=== PATIENT | female | born 1975 | race Caucasian/White ===

== ENCOUNTER 2020-11-12 21:59 | Observation (INO) | payer BC, SELFPAY ==
--- NOTE | ~2020-11-12 | XR_ITS ---
XR abdomen/kub 1V 11/14/2020 09:35 INDICATION: Right renal stone TECHNIQUE: KUB COMPARISON: CT dated 11/13/2020 FINDINGS: Bowel gas pattern is normal. There is no evidence of free air, mass, organomegaly, ascites or obstruction. No abnormal calculi are seen. There are pelvic phleboliths. Cannot definitively exc lude distal ureteral stone. The bones appear intact. IMPRESSION: 1: No acute abdominal abnormality identified. Dr. Ry Mary discussed with Dr. Mila Starks MD at 11/14/2020 09:45 CDT. Reviewed, dictated and finalized at location B.
--- NOTE | ~2020-11-12 | XR_ITS ---
EXAMINATION: XR retrograde pyelo w/stent RT DATE: 11/14/2020 12:44 INDICATION: Right internal ureteral stent placement TECHNIQUE: Fluoroscopic images from a right internal ureteral stent placement are submitted for cindy carranza 76 seconds of fluoroscopy time. FINDINGS: There is a right double-J internal ureteral stent projecting in expected position, with proximal [place] loop at the level of the renal pelvis and distal loop in the pelvis within the bladder lumen. IMPRESSION: 1. Right internal ureteral stent placement. Please refer to real-time procedural findings for edyta ls. Reviewed, dictated and finalized at location B. IMPRESSION: 1. Right internal ureteral stent placement. Please refer to real-time procedu ral findings for details.
--- NOTE | ~2020-11-12 | CT_ITS ---
EXAMINATION: CT pelvis wo con EXAM DATE: 11/14/2020 09:58 INDICATION: asses for stone . TECHNIQUE: Spiral CT pelvis wo con was performed without contrast. Axial, coronal and sagittal imag es were reviewed. The dose-length product (DLP) for this examination was 286.65 mGy-cm. The exposur e was tailored according to patient size (auto mA exposure control), and iterative reconstruction ( IR) was used as additional dose reduction technique. Comparison is made to prior examination from 11/04. FINDINGS: There is no interval change in the right distal ureteral 8 mm stone and mild to moderate le ft hydroureter. There is some increase in the left periureteral fat stranding compared to yesterday. Normal appendix. Uterus and bladder are unremarkable. No pelvic lymphadenopathy. IMPRESSION: Right distal ureteral 8 mm stone, about 4 cm from the UVJ. Obstructive nephropathy. Reviewed, dictated and finalized at location A. IMPRESSION: Right distal ureteral 8 mm stone, about 4 cm from the UVJ. Obstruc tive nephropathy.
--- NOTE | ~2020-11-12 | CT_ITS ---
EXAMINATION: CT abdomen pelvis wo con EXAM DATE: 11/13/2020 00:35 INDICATION: RIGHT flank pain TECHNIQUE: Spiral CT of the abdomen and pelvis was performed without contrast. Axial, coronal and sag ittal images were reviewed. The dose-length product (DLP) for this examination was 1645.97 mGy-cm. The exposure was tailored according to patient size (auto mA exposure control), and iterative reconst ruction (ASIR) was used as additional dose reduction technique. There is no prior study for comparis on. FINDINGS: 8 mm stone in the distal aspect right ureter, 3 cm from the ureterovesicular junction. Mild to moderate right-sided obstructive nephropathy. There is punctate left nephrolithiasis. The uterus is unremarkable. The bladder is unremarkable. The liver, spleen, adrenal glands and pancreas are unremarkable. Gallbladder is unremarkable. No biliary obstruction. There is no retroperitoneal or pelvic lymphadenopathy. The appendix is normal. The stomach and small bowel are unremarkable. There is expected amount of c olonic stool. No free intraperitoneal gas. The heart is normal in size. There are no pericardial or pleural effusions. Mild dependent atelectasis. There are no osteoblastic or osteolytic lesions identified. IMPRESSION: 1. Right distal ureteral 8 mm stone, mild to moderate obstructive nephropathy. 2. Punctate left nephrolithiasis. Reviewed, dictated and finalized at location A.
[2020-11-12 22:07] VITALS: BP 115/62; PULSE 104; RESP 18; TEMP 35.7; O2SAT 98
[2020-11-12] MEDS: ONDANSETRON INJ 4 MG/2 ML VIAL IV PUSH (22:54)
[2020-11-12] MEDS: MORPHINE SULFATE (*CRX) 4 MG/ML INJ IV PUSH (22:54)
[2020-11-12] MEDS: FAMOTIDINE 20 MG/2 ML VIAL IV PUSH (22:54)
[2020-11-12] MEDS: LORazepam INJ (*CRX) 2 MG/ML VIAL 1 MG IV PUSH (22:55)
[2020-11-12] MEDS: SODIUM CHLORIDE 0.9% IV 1,000 ML 999 ML IV CONT (22:55)
[2020-11-12 23:10] LABS: Basophils Absolute Auto 0.1 K/mm3 (0.0-0.1); Basophils Percent Auto 0.5 % (0.2-1.2); Eosinophils Absolute Auto 0.2 K/mm3 (0-0.3); Hematocrit 38.4 % (37.0-47.0); Hemoglobin 12.4 g/dL (12.0-15.0); Immature Granulocyte Absolute 0.04 K/mm3 (0.00-0.031); Immature Granulocyte Percent A 0.4 % (0-0.5); Lymphocytes Absolute Auto 3.27 K/mm3 (0.9-3.2); Lymphocytes Percent Auto 30.1 % (18.3-44.2); Mean Corpuscular HGB Conc 32.3 g/dl (32-36); Mean Corpuscular Volume 83.5 fl (80-100); Mean Platelet Volume 9.7 fl (7.4-10.4); Monocytes Absolute Auto 0.7 K/mm3 (0.1-0.6); Monocytes Percent Auto 6.3 % (2.6-8.5); Neutrophils Absolute Auto 6.6 K/mm3 (1.3-6.7); Neutrophils Percent Auto 60.7 % (45.5-73.1); Platelet Count Result 380 k/mm3 (150-375); Red Cell Distribution Width 14.8 % (11.5-14.5); White Blood Count 10.9 K/mm3 (4.5-10.0)
[2020-11-12] MEDS: HYDROmorphone HCL INJ (*CRX) 1 MG/ML SYR IV PUSH (23:11)
[2020-11-12 23:44] LABS: Alanine Aminotransferase 23 U/L (4-35); Albumin Level 4.2 g/dL (3.5-5.1); Alkaline Phosphatase 70 U/L (38-126); Anion Gap 11 mmol/L (8-16); Aspartate Amino Transferase 30 U/L (14-36); Bilirubin,Total 0.2 mg/dL (0.2-1.3); Blood Urea Nitrogen 14 mg/dL (7-17); Calcium 9.1 mg/dL (8.4-10.2); Carbon Dioxide 22 mmol/L (22-30); Chloride 105 mmol/L (98-107); Estimated CRCL calculation 81 ml/min; Estimated Glomerular Filt Rate > 60; Glucose 163 mg/dL (65-105); Lipase 75 U/L (23-300); Potassium 3.8 mmol/L (3.4-5.0); Sodium 138 mmol/L (137-145)
[2020-11-13] VITALS (12 sets, daily range): BP systolic 107–182; BP diastolic 69–109; PULSE 81–109; RESP 16–22; TEMP 36.3–37.1; O2SAT 94–100; BMI 36.7
[2020-11-13 00:20] LABS: Add Urine Microscopic? YES; Appearance Urine Cloudy (Clear); Bacteria Urine Trace /hpf; Bilirubin Urine Negative (Negative); Blood Urine 3+ (Negative); Color Urine Yellow (Yellow); Glucose Urine UA Negative (Negative); Ketones Urine Trace mg/dL (Negative); Leukocyte Esterase Ur Negative LEU/UL (Negative); Mucus Urine Heavy /lpf; Nitrate Urine Negative (Negative); Protein Urine 3+ mg/dL (Negative); RBC Urine >75 /hpf (0-2); Specific Grav Ur 1.024 (1.001-1.035); Squamous Epithelial Cell Urine Occasional /hpf (Few); Urobilinogen Urine Negative mg/dL (<2.0)
--- NOTE | 2020-11-13 00:54 | ED.GENADULT ---
HPI - General Adult General Chief complaint: Abdominal Pain <Evin Partida PA-C - Last Filed: 11/13/20 01:36> Stated complaint: abd pain x 1 hour ago <Evin Partida PA-C - Last Filed: 11/13/20 01:36> Time Seen by Provider: 11/12/20 22:41 <Evin Partida PA-C - Last Filed: 11/13/20 01:36> Source: patient, family and RN notes reviewed <Evin Partida PA-C - Last Filed: 11/13/20 01:36> Mode of arrival: ambulatory <Evin Partida PA-C - Last Filed: 11/13/20 01:36> Limitations: no limitations <Evin Partida PA-C - Last Filed: 11/13/20 01:36> History of Present Illness HPI narrative: Patient is a 45-year-old female who presents to emergency department for evaluation of severe right-sided abdominal pain patient notes sharp stabbing pain that is intense patient has been treated for urinary tract infection this week but today developed severe pain. Patient denies similar occurrence in the past. On arrival patient is uncomfortable. Patient denies vomiting but notes nausea. <Evin Partida PA-C - Last Filed: 11/13/20 01:36> Related Data Home medications: Home Medications Medication Instructions Recorded Confirmed fexofenadine-pseudoephedrine 1 tablet PO QAM 11/13/20 11/13/20 [Shelia-D 24 Hour] lisinopril 5 mg PO HS 11/13/20 11/13/20 <Evin Partida PA-C - Last Filed: 11/13/20 01:36> Allergies/adverse reactions: Allergies Allergy/AdvReac Type Severity Reaction Status Date / Time No Known Allergies Allergy Verified 11/12/20 22:54 <Evin Partida PA-C - Last Filed: 11/13/20 01:36> Review of Systems Review of Systems: All systems reviewed & are unremarkable except as noted in HPI and below <Evin Partida PA-C - Last Filed: 11/13/20 01:36> PMFSH Past Medical History Medical History: Medical History (Updated 11/13/20 @ 01:36 by Evin Partida PA-C) Obesity <Evin Partida PA-C - Last Filed: 11/13/20 01:36> Family History Family History: Family History (Updated 11/13/20 @ 02:59 by Yamilka Glies RN) Grandparent Diabetes mellitus Father Hypertension <NASRIN Cabrera Last Filed: 11/13/20 01:36> Social History Social History: Social History (Updated 11/13/20 @ 01:30 by Evin Partida PA-C) Smoking status: Never smoker Alcohol intake: never Substance use: never Spiritual care concerns: No <NASRIN Cabrera Last Filed: 11/13/20 01:36> Exam Narrative: Exam Narrative: GENERAL: Well-appearing, obese, uncomfortable and in no acute distress. HEAD: Normocephalic, atraumatic. EYES: PERRLA and EOMI. ENT: Nares clear, no rhinorrhea or epistaxis. Mucous membranes moist. CHEST: Clear to auscultation. No respiratory distress. No wheezes rales or rhonchi HEART: Regular rate and rhythm. No murmur heard. Normal peripheral pulses. ABDOMEN: Soft, right lower quadrant tenderness to palpation, distended EXTREMITIES: Normal range of motion. No edema. SKIN: Warm, dry, no rash. NEURO: No focal deficits. Alert and oriented x3. PSYCH: Normal mood and affect. <NASRIN Cabrera Last Filed: 11/13/20 01:36> Course Course Emergency Course: Patient will be placed in hospital for urolithiasis to the urology service the patient is afebrile nontoxic-appearing continues to have pain but is in better state after medications were administered and feels comfortable to stay in hospital for reevaluation in the morning by urology <NASRIN Cabrera Last Filed: 11/13/20 01:36> Consultations Consultation #1: Discussed case with urology who will admit the patient with reevaluation in the morning <NASRIN Cabrera Last Filed: 11/13/20 01:36> Date: 11/13/20 <NASRIN Cabrera Last Filed: 11/13/20 01:36> Vital Signs Vital signs: Vital Signs Temperature 96.2 F L 11/12/20 22:07 Pulse Rate 104 H 11/12/20 22:07 Respiratory Rate 18 06/0
--- NOTE | 2020-11-13 02:47 | ADMGEN ---
This patient, Fara Fisher, was admitted to Medical Room 246-. Patient/family oriented to hospital policies and general routines including ID bracelet, bed and alarms, visiting hours, pain management, procedures, bathroom and other care routines, personal items, smoking policy, room service/diet, and visiting hours. Information on how to activate the Rapid Response Team has been discussed. Patient/Family are encouraged to report perceived risks to care and to ask questions if they do not understand what they are told or what they should do.
[2020-11-13] MEDS: LACTATED RINGERS 1,000 ML 125 ML IV CONT ×3 (03:05→18:25)
[2020-11-13] MEDS: lisinopriL 5 MG TABLET PO ×2 (05:11→22:11)
[2020-11-13] MEDS: FAMOTIDINE 20 MG/2 ML VIAL IV PUSH ×2 (08:38→22:11)
--- NOTE | 2020-11-13 17:48 | WPDURCON ---
Assessment and Plan Assessment and plan (1) Right ureteral stone: Code(s): N20.1 - Calculus of ureter Status: Acute Assessment and Plan: The very pleasant 45-year-old female with a right 8mm distal ureteral stone. Patient's pain is improved however the patient has not passed the stone into urinary strainer -plain continued observation of the patient today with oral pain medicine and tamsulosin -the patient has not passed the stone by the morning we will consider intervention with a right ureteroscopy. Will consider repeat imaging prior to surgical intervention if the patient continues to remain asymptomatic. -I have discussed the patient and her and they are agreeable with this plan (2) Hydronephrosis: Code(s): N13.30 - Unspecified hydronephrosis Status: Acute Urology Consult Note HPI Date Seen: 11/13/20 Requesting Physician: Mila Starks MD Primary Care Provider: ADJUNCT WRITING INSTRUCTOR PHYSICIAN Consult Narrative Narrative: Fara Fisher is a 45 year old female who presented to the emergency department last night with right-sided pain. She is found to have an 8mm distal ureteral stone. The patient does not have history of nephrolithiasis in the past. Patient was admitted to the hospital for further observation. [facility] Past Medical History Medical History (Updated 11/13/20 @ 17:50 by Mila Starks MD) Hydronephrosis Obesity Right ureteral stone Family History Family History (Updated 11/13/20 @ 02:59 by Yamilka Giles RN) Grandparent Diabetes mellitus Father Hypertension Social History Social History (Updated 11/13/20 @ 01:30 by Evin Partida PA-C) Smoking status: Never smoker Alcohol intake: never Substance use: never Spiritual care concerns: No Meds Home Medications and Allergies Home Medications Medication Instructions Recorded Confirmed Type fexofenadine-pseudoephedrine 1 tablet PO QAM 11/13/20 11/13/20 History [Shelia-D 24 Hour] lisinopril 5 mg PO HS 11/13/20 11/13/20 History Allergies Allergy/AdvReac Type Severity Reaction Status Date / Time No Known Allergies Allergy Verified 11/12/20 22:54 Vital Signs Vital Signs - 24 hr 11/12/20 22:07 11/13/20 01:07 11/13/20 02:42 Temperature 35.7 C L 36.3 C L Pulse Rate 104 H 81 81 Respiratory Rate 18 22 H 20 Blood Pressure 115/62 107/69 131/84 Pulse Oximetry 98 100 97 11/13/20 03:24 11/13/20 03:30 11/13/20 03:33 Temperature 36.9 C Pulse Rate 109 H Respiratory Rate 20 Blood Pressure 161/109 H 175/100 H 170/100 H Pulse Oximetry 94 11/13/20 04:00 11/13/20 04:40 11/13/20 06:26 Temperature 36.9 C Pulse Rate 109 H Respiratory Rate 20 Blood Pressure 182/106 H 182/106 H 140/74 Pulse Oximetry 94 11/13/20 09:49 11/13/20 14:00 Temperature 37.1 C 36.6 C Pulse Rate 105 H 92 Respiratory Rate 18 16 Blood Pressure 125/87 141/84 H Pulse Oximetry 98 97 Exam Narrative: Exam Narrative: The patient is awake alert and in no acute distress. Her breathing is unlabored. Her abdomen is soft Results Labs CBC & Chem 7: 11/12/20 22:55 11/12/20 22:55 Labs: Short CBC 11/12/20 Range/Units 22:55 WBC 10.9 H (4.5-10.0) K/mm3 Hgb 12.4 (12.0-15.0) g/dL Hct 38.4 (37.0-47.0) % Plt Count 380 H (150-375) k/mm3 BMP 11/12/20 22:55 Sodium 138 Potassium 3.8 Chloride 105 Carbon Dioxide 22 BUN 14 Creatinine 0.90 Glucose 163 H Calcium 9.1 Liver Function 11/12/20 Range/Units 22:55 Total Bilirubin 0.2 (0.2-1.3) mg/dL AST 30 (14-36) U/L ALT 23 (4-35) U/L Alkaline Phosphatase 70 (38-126) U/L Albumin 4.2 (3.5-5.1) g/dL Urine 11/13/20 Range/Units 00:06 Urine Color Yellow (Yellow) Urine Appearance Cloudy H (Clear) Urine pH 5.0 (5.0-9.0) Ur Specific [place] 1.024 (1.001-1.035) Urine Protein 3+ H (Negative) mg/dL Urine Glucose (UA) Negative (Negative
[2020-11-13] MEDS: TAMSULOSIN HCL 0.4 MG CAPSULE PO (22:11)
[2020-11-14] VITALS (9 sets, daily range): BP systolic 90–154; BP diastolic 67–106; PULSE 75–114; RESP 12–20; TEMP 36–36.6; O2SAT 96–100
[2020-11-14] MEDS: LACTATED RINGERS 1,000 ML 125 ML IV CONT (01:43)
[2020-11-14 05:42] LABS: Basophils Percent Auto 0.7 % (0.2-1.2); Eosinophils Absolute Auto 0.1 K/mm3 (0-0.3); Eosinophils Percent Auto 2.4 % (0-4.4); Hematocrit 36.7 % (37.0-47.0); Hemoglobin 11.7 g/dL (12.0-15.0); Immature Granulocyte Absolute 0.01 K/mm3 (0.00-0.031); Immature Granulocyte Percent A 0.2 % (0-0.5); Lymphocytes Absolute Auto 2.12 K/mm3 (0.9-3.2); Lymphocytes Percent Auto 35.8 % (18.3-44.2); Mean Corpuscular HGB Conc 31.9 g/dl (32-36); Mean Corpuscular Hemoglobin 27.5 pg (26-34); Mean Corpuscular Volume 86.2 fl (80-100); Mean Platelet Volume 9.7 fl (7.4-10.4); Monocytes Absolute Auto 0.4 K/mm3 (0.1-0.6); Monocytes Percent Auto 6.4 % (2.6-8.5); Neutrophils Absolute Auto 3.2 K/mm3 (1.3-6.7); Neutrophils Percent Auto 54.5 % (45.5-73.1); Platelet Count Result 314 k/mm3 (150-375); Red Blood Count 4.26 M/mm3 (4.2-5.4); Red Cell Distribution Width 15.2 % (11.5-14.5); White Blood Count 5.9 K/mm3 (4.5-10.0)
[2020-11-14 05:59] LABS: Anion Gap 6 mmol/L (8-16); Blood Urea Nitrogen 8 mg/dL (7-17); Calcium 8.5 mg/dL (8.4-10.2); Carbon Dioxide 28 mmol/L (22-30); Chloride 106 mmol/L (98-107); Estimated CRCL calculation 87 ml/min; Estimated Glomerular Filt Rate > 60; Glucose 138 mg/dL (65-105); Sodium 140 mmol/L (137-145)
--- NOTE | 2020-11-14 10:02 | WPDUROPN2 ---
Progress Note: A&P Assessment and Plan (1) Right ureteral stone: Code(s): N20.1 - Calculus of ureter Status: Acute (2) Hydronephrosis: Code(s): N13.30 - Unspecified hydronephrosis Status: Acute Additional Plan The patient is asymptomatic at this time. We therefore ordered a CT of the pelvis today. I reviewed the images and appears the patient's stone persist in the right distal ureter. -will plan right ureteroscopy, laser lithotripsy, stone extraction, stent insertion today. She understands the risks of procedure and agrees to proceed. Subjective Subjective Date/Time Seen: 11/14/20 10:02 Patient states he feels well this morning. Exam Narrative: Exam Narrative: Awake alert oriented no acute distress. Patient breathing is labored abdomen soft nontender nondistended. Objective Data Vital Signs Vital Signs: Vital Signs - 24 hr 11/13/20 14:00 11/13/20 18:00 11/13/20 20:00 Temperature 36.6 C 36.7 C 36.9 C Pulse Rate 92 93 95 Respiratory Rate 16 16 16 Blood Pressure 141/84 H 144/88 H 143/84 H Pulse Oximetry 97 98 99 11/14/20 04:00 11/14/20 09:16 Temperature 36.6 C Pulse Rate 83 Respiratory Rate 16 Blood Pressure 138/79 Pulse Oximetry 100 98 Intake/Output Intake/Output: Intake & Output 11/11/20 11/12/20 11/13/20 11/14/20 23:59 23:59 23:59 23:59 Intake Total 1000 3755 1300 Output Total 3700 2800 Balance 1000 55 -1500 Meds/Results Medications: Active Medications Generic Name Dose Route Start Last Admin Trade Name Freq PRN Reason Stop Dose Admin Famotidine 20 mg 11/13/20 09:00 11/13/20 22:11 Famotidine 20 Mg/2 Ml Vial IV PUSH 20 mg Q12HR YAIR Administration Lactated Ringer's 1,000 mls @ 125 mls/hr 11/13/20 01:40 11/14/20 01:43 Lr - Lactated Ringers Iv IV CONT 125 mls/hr .Q8H YAIR Administration Acetaminophen 1,000 mg in 100 mls @ 400 mls/hr 11/14/20 04:17 11/14/20 04:37 Ofirmev 1,000 Mg Ivpb IVPB 11/15/20 04:18 Infused Q6H PRN Infusion Pain Rated 1-3 Lactated Ringer's 1,000 mls @ 30 mls/hr 11/14/20 08:00 Lr - Lactated Ringers Iv IV CONT .Q24H YAIR Lisinopril 5 mg 11/13/20 05:15 11/13/20 22:11 Lisinopril 5 Mg Tablet PO 5 mg HS YAIR Administration Morphine Sulfate 4 mg 11/13/20 01:36 Morphine Sulfate (*Crx) 4 Mg/Ml Inj IV PUSH Q2H PRN Pain Rated 7-10 Ondansetron HCl 4 mg 11/13/20 01:36 Ondansetron Inj 4 Mg/2 Ml Vial IV PUSH Q4H PRN Nausea Tamsulosin HCl 0.4 mg 11/13/20 21:00 11/13/20 22:11 Tamsulosin Hcl 0.4 Mg Capsule PO 0.4 mg BEDTIME YAIR Administration Radiology Results: ITS Impressions Abdomen/Pelvis CT 11/13/20 07:41 IMPRESSION: 1. Right distal ureteral 8 mm stone, mild to moderate obstructive nephropathy. 2. Punctate left nephrolithiasis. Abdomen X-Ray 11/14/20 09:39 IMPRESSION: 1: No acute abdominal abnormality identified. Dr. Ry Mary discussed with Dr. Mila Starks MD at 11/14/2020 09:45 CDT. Labs Labs: Laboratory Results - last 24 hr 11/14/20 11/14/20 05:20 05:20 WBC 5.9 RBC 4.26 Hgb 11.7 L Hct 36.7 L MCV 86.2 MCH 27.5 MCHC 31.9 L RDW 15.2 H Plt Count 314 MPV 9.7 Immature Gran % (Auto) 0.2 Neut % (Auto) 54.5 Lymph % (Auto) 35.8 [place] % (Auto) 6.4 Eos % (Auto) 2.4 Baso % (Auto) 0.7 Lymph # (Auto) 2.12 [place] # (Auto) 0.4 Eos # (Auto) 0.1 Baso # (Auto) 0.0 Abs Immat Gran (auto) 0.01 Absolute Neuts (auto) 3.2 Absolute Nucleated RBC 0.0 Nucleated RBC % 0.0 Sodium 140 Potassium 4.0 Chloride 106 Carbon Dioxide 28 Anion Gap 6 L BUN 8 D Creatinine 0.80 Estim Creat Clear Calc 87 Estimated GFR > 60 Glucose 138 H Calcium 8.5
--- NOTE | 2020-11-14 10:22 | WPDHPUPDATE1 ---
History and Physical Update Update Date/Time: 11/14/20 10:22 History and Physical has been reviewed, including an updated exam of the patient. There are NO changes in the patient's condition. Risks, benefits, and alternatives have been discussed and questions answered. Patient agrees to proceed with procedure.
[2020-11-14] MEDS: LACTATED RINGERS 1,000 ML 30 ML IV CONT (10:37)
--- NOTE | 2020-11-14 10:57 | WPDANESEPPF ---
Anes - Initial Pre Proc Eval Procedure: Operation Date: 11/14/20 11:45 Proposed Procedures p Cystoscopy, Right Ureteroscopy with Stone Extraction and Possible Stent Placement(Right) - Mila Starks MD s Possible Holmium Laser Procedure - Mila Starks MD Date/Time: 11/14/20 10:57 Surgeon: Mila Starks MD Pre Op Diagnosis: Kidney stone Patient Data Age: 45 Gender: F Height: 5 ft 4 in Weight: 97.1 kg Last Vital Signs Temp 36.3 C L 11/14/20 10:10 Pulse 83 11/14/20 10:10 Resp 16 11/14/20 10:10 BP 139/106 H 11/14/20 10:10 Pulse Ox 97 11/14/20 10:10 Allergies Allergy/AdvReac Type Severity Reaction Status Date / Time No Known Allergies Allergy Verified 11/12/20 22:54 Home Medications Medication Instructions Recorded Confirmed Type fexofenadine-pseudoephedrine 1 tablet PO QAM 11/13/20 11/13/20 History [Shelia-D 24 Hour] lisinopril 5 mg PO HS 11/13/20 11/13/20 History Laboratory Tests 11/14/20 11/14/20 05:20 05:20 WBC 5.9 K/mm3 K/mm3 (4.5-10.0) RBC 4.26 M/mm3 M/mm3 (4.2-5.4) Hgb 11.7 g/dL L g/dL (12.0-15.0) Hct 36.7 % L % (37.0-47.0) MCV 86.2 fl fl (80-100) MCH 27.5 pg pg (26-34) MCHC 31.9 g/dl L g/dl (32-36) RDW 15.2 % H % (11.5-14.5) Plt Count 314 k/mm3 k/mm3 (150-375) MPV 9.7 fl fl (7.4-10.4) Immature Gran % (Auto) 0.2 % % (0-0.5) Neut % (Auto) 54.5 % % (45.5-73.1) Lymph % (Auto) 35.8 % % (18.3-44.2) [place] % (Auto) 6.4 % % (2.6-8.5) Eos % (Auto) 2.4 % % (0-4.4) Baso % (Auto) 0.7 % % (0.2-1.2) Lymph # (Auto) 2.12 K/mm3 K/mm3 (0.9-3.2) [place] # (Auto) 0.4 K/mm3 K/mm3 (0.1-0.6) Eos # (Auto) 0.1 K/mm3 K/mm3 (0-0.3) Baso # (Auto) 0.0 K/mm3 K/mm3 (0.0-0.1) Abs Immat Gran (auto) 0.01 K/mm3 K/mm3 (0.00-0.031) Absolute Neuts (auto) 3.2 K/mm3 K/mm3 (1.3-6.7) Absolute Nucleated RBC 0.0 K/mm3 K/mm3 (0.0-0.012) Nucleated RBC % 0.0 % % (0.0-0.2) Sodium 140 mmol/L mmol/L (137-145) Potassium 4.0 mmol/L mmol/L (3.4-5.0) Chloride 106 mmol/L mmol/L (98-107) Carbon Dioxide 28 mmol/L mmol/L (22-30) Anion Gap 6 mmol/L L mmol/L (8-16) BUN 8 mg/dL D mg/dL (7-17) Creatinine 0.80 mg/dL mg/dL (0.7-1.0) Estim Creat Clear Calc 87 ml/min ml/min Estimated GFR > 60 (59 - ) Glucose 138 mg/dL H mg/dL (65-105) Calcium 8.5 mg/dL mg/dL (8.4-10.2) Patient hx anesthesia problems: other (motion sickness) Family hx anesthesia problems: none [facility] Past Medical History Medical History Hydronephrosis Obesity Right ureteral stone Family History Family History Grandparent Diabetes mellitus Father Hypertension Social History Social History Smoking status: Never smoker Alcohol intake: never Substance use: never Spiritual care concerns: No Anes - Eval Final PreProcedure Day of Procedure 11/14/20 10:57 Patient weight: obese Heart: regular rate and rhythm Lungs: clear to auscultation Airway: Mallampati scale class II Neurological: alert and oriented Last oral intake: >/= 8 hours ASA classification: II Emergent: no Anesthetic plan: proceed Anesthesia type and monitoring: general LMA and standard monitoring Informed Consent: The patient's anesthetic plan and its attendant risks and benefits were discussed with the patient/family/POA. Questions were solicited and answers provided to the satisfaction of the patient/family/POA.
[2020-11-14] MEDS: SCOPOLAMINE 1.5 MG PATCH TRANSDERM (11:15)
[2020-11-14] MEDS: LIDOCAINE HCL 2% GEL UROJET 10 ML PKG MUCOUS MEM (11:55)
[2020-11-14] MEDS: ceFAZolin 2 GM/D5W 50 ML 2 GM/50 ML BAG IVPB (11:57)
--- NOTE | 2020-11-14 12:46 | W.PM.PROC2 ---
Procedure Note - Detailed Date of Procedure 11/14/20 Pre-op Diagnosis Right ureteral stone Post-op Diagnosis same Procedure Performed Cystoscopy, right ureteroscopy, laser lithotripsy, retrograde pyelogram, stent insertion Surgeon Mila Starks MD Anesthesia general Findings Impacted 9mm stone in the ureter Description of Procedure Informed consents obtained. Patient taken to operating room. She was given preoperative IV antibiotics. She was induced with anesthesia. She was placed in dorsal lithotomy position. She was prepped draped. Inserted a 20 F cystoscope through the urethra bladder. The bladder was normal without mucosal abnormalities. We then advanced a wire into the right ureteral orifice there was an impacted stone approximately 4cm above the UVJ. We were able to dilate with an 810 coaxial dilator. At this point we advanced the semi rigid ureteral scope into the ureter and identified the impacted stone. Using a laser fiber we fragment the stone into multiple pieces. Pieces were removed with a Zero tip basket and sent as specimen. The then inspected the length of the ureter up to the UPJ and there were no residual stones seen. The retrograde pyelogram did reveal a bifid collecting system with hydronephrosis, there was no extravasation. Over wire then placed a 6 F variable length stent to curl in renal pelvis: Bladder bladder was emptied 10cc lidocaine were instilled patient was awakened taken PACU in stable condition -patient follow-up in 1 to 2 weeks for stent removal Urine Output 2,400 Drains No Packing No Pathology yes Complications No immediate complications Condition stable Disposition PACU
[2020-11-14] MEDS: fentaNYL CITRATE INJ (*CRX) 100 MCG/2 ML VIAL 25 MCG IV PUSH ×2 (13:31→13:34)
[2020-11-14] MEDS: OXYBUTYNIN CHLORIDE 5 MG TABLET PO (16:02)
--- NOTE | 2020-11-16 09:27 | PC.NURSE ---
call from pt following discharge, she states she is having blood in her urine starting yesterday, she feels like her bladder is emptying and no clots noted, she states she has no pain and feels fine, suggested pt continues to monitor amount of blood in urine and return to ED if she feels like her bladder is not emptying or amount increases drastically or clots are noticed, advised to call MD office in a.m
--- NOTE | 2020-11-28 15:39 | P.DS_ITS ---
DS: Admitting Diagnosis Admitting Diagnosis Admitting Diagnosis: Right ureteral stone DS: Discharge Diagnosis Discharge Diagnosis (1) Hydronephrosis: Code(s): N13.30 - Unspecified hydronephrosis Status: Acute (2) Right ureteral stone: Code(s): N20.1 - Calculus of ureter Status: Acute (3) Urolithiasis: Code(s): N20.9 - Urinary calculus, unspecified Status: Acute DS: Summary Hospital Course Hospital Course: This is a very pleasant 45-year-old lady who presented to the emergency department on November 13, 2020 with a right distal ureteral stone. She underwent Cystoscopy, right ureteroscopy, laser lithotripsy, retrograde pyelogram, stent insertion on November 14, 2020. The patient tolerated the procedure well was discharged home in stable condition. Time Spent with Patient Time attestation: This is a very pleasant 45-year-old lady who presented to the emergency department on November 13, 2020 with a right distal ureteral stone. She underwent Cystoscopy, right ureteroscopy, laser lithotripsy, retrograde pyelogram, stent insertion on November 14, 2020. The patient tolerated the procedure well was discharged home in stable condition. Exam Narrative: Exam Narrative: Awake alert in no acute distress breathing is unlabored abdomen soft nontender nondistended DS: Data Data Completed and Pending Completed studies during hospitalization: Pending at discharge 11/14/20 12:40 Surgical [PTH] Routine Discharge Plan Discharge Consulting providers: Mando France ; Evin Partida ; Carlos Mcdonnell ; Ry Mary Discharging Clinician: Mila Starks Patient Disposition: Home, Self-Care Activity: may shower Diet: as tolerated Discharge Instructions: Remove the Scopolamine patch that was placed behind your ear in 72 hours or less. Wash your hands after touching. -no driving for 24 hours. Please perform only light activities for 2 to 3 days. After that time he may resume all your full activity. -follow-up appointment in 1-[address] Starks for stent removal Patient Instructions: Antibiotic Form Stand Alone Forms: General Discharge Information Follow-up/Referrals: Mila Starks MD [Physician] - Discharge Medications: Continued lisinopril 5 mg tablet 5 mg PO HS RF: 0 Shelia-D 24 Hour 180-240 mg Tablet Extended Release 24 Hr 1 tablet PO QAM RF: 0 Date of admission: 11/13/20 01:36 Primary Care Provider: PHYSICIAN,STATUE MAKER Admitting Provider: Mila Starks Attending physician on admission: Mila Starks Condition: Improved
== END 2020-11-14 16:15 | disposition home or self-care (01) ==
LOC: ANHED 11-13 01:35 → ANH2MED 11-13 02:40
PROVIDERS: Emergency Medicine; Emergency Medicine Emergency Medical Services; Admitting Provider Urology; Emergency Provider General Practice; Visit Provider Urology
PROC: (CPT 52352; principal; 2020-11-14 11:45)
PROC: (CPT 52356; 2020-11-14 11:45)
DX: N13.2 Hydronephrosis with renal and ureteral calculous obstruction (principal)
CPT/HCPCS: 52356; 36415; 51701; 72192; 74018; 74176; 74420; 80048; 80053; 81001; 81025; 82365; 83690; 85025; 87086; 88300; 96361; 96365; 96367; 96375; 96376; 99285; A9270; C1769; C2617; G0378; J0131; J0690; J0696; J1100; J1170; J2060; J2250; J2270; J2405; J2704; J3010; J7030; J7120; Q9966

== ENCOUNTER 2021-01-06 11:50 | Outpatient (CLI) | payer BC, SELFPAY ==
--- NOTE | ~2021-01-06 | XR_ITS ---
XR abdomen/kub 1V DATE: 01/06/2021 12:08 INDICATION: Right ureteral stone follow-up TECHNIQUE: AP projection, 2 views COMPARISON: 11/13/2020 CT abdomen pelvis 11/14/2020 KUB and retrograde right pyelogram FINDINGS: Approximately 4 x 7 mm calcified calculus overlying right S4 sacral area on 11/14/2020 corre sponding to the distal right ureteral calculus noted on 11/13/2020 CT abdomen pelvis examination is no longer identified on 01/06/2021 KUB. Bilateral calcified pelvic phleboliths are noted. The psoas shadows are intact. No visceromegaly is evident. The bowel gas pattern is unremarkable, wit hout evidence of obstruction. IMPRESSION: Resolution of approximately 4 x 7 mm calcified calculus of distal right ureter since 11/14 Reviewed, dictated and finalized at [facility]. Reviewed, dictated and finalized at [facility]. IMPRESSION: Resolution of approximately 4 x 7 mm calcified calculus of distal r ight ureter since 11/15/2019
== END 2021-01-06 11:51 | disposition home or self-care (01) ==
LOC: ANHIMG 11:54
PROVIDERS: Visit Provider Urology
DX: N20.1 Calculus of ureter (principal)
CPT/HCPCS: 74018

== ENCOUNTER 2023-05-24 15:45 | Outpatient (CLI) | payer BC, SELFPAY ==
--- NOTE | ~2023-05-24 | MM_ITS ---
EXAMINATION: MM screening chi BI w adryan HISTORY: Screening mammogram TECHNIQUE: Craniocaudal and mediolateral oblique 3-D tomosynthesis images were obtained and synthetic 2-D images were generated. CAD analysis was submitted and interpreted. COMPARISON: No prior mammogram is available for comparison at this institution. BREAST PARENCHYMAL COMPOSITION: The breasts are almost entirely fatty. FINDINGS: There is no evidence of suspicious mass, calcification, or architectural distortion to sugg est malignancy in either breast. There has been no suspicious interval change. IMPRESSION: 1. No mammographic evidence of malignancy. 2. Recommend routine screening mammography in one year. BI-RADS Category 1: Negative Reviewed, dictated and finalized at [facility]. [employer]
== END 2023-05-24 15:46 | disposition home or self-care (01) ==
PROVIDERS: Visit Provider Nurse Practitioner Family
DX: Z12.31 Encounter for screening mammogram for malignant neoplasm of breast (principal)
CPT/HCPCS: 77063; 77067

== ENCOUNTER 2024-12-18 11:10 | Emergency (ER) | payer BC, SELFPAY ==
[2024-12-18] VITALS (18 sets, daily range): BP systolic 156–178; BP diastolic 79–104; PULSE 64–93; RESP 12–28; TEMP 36.6; O2SAT 93–100
--- NOTE | ~2024-12-18 | US_ITS ---
US right upper quadrant INDICATION: Right upper quadrant pain PROCEDURE: Realtime right upper abdominal ultrasound. COMPARISON: No prior studies for comparison. FINDINGS: The pancreas is normal without focal mass or pancreatic ductal dilation. Liver echotexture is normal without focal mass or intrahepatic biliary dilatation. There is normal directional flow i n the portal vein. The gallbladder is normal without stones, gallbladder wall thickening or pericholecystic fluid. Comm on bile duct measures 4 mm. No sonographic Santamaria's sign. IMPRESSION: 1: Normal limited abdominal ultrasound. Reviewed, dictated and finalized at location B.
--- NOTE | ~2024-12-18 | XR_ITS ---
XR chest 2V Ordering provider: Renée Urrutia MD History: 49 years Female with . chest pain X 4 DAYS . Comparison: None. FINDINGS: MEDIASTINUM: The cardiac silhouette is not enlarged. LUNGS: No infiltrates, effusions or pneumothorax. OTHER: No free air under the diaphragm. IMPRESSION: No acute cardiopulmonary pathology. Reviewed, dictated and finalized at location A.
--- NOTE | 2024-12-18 11:12 | ECG_ITS ---
Test Date: 2024-12-18 11:16:43 Measurements Intervals [place] Rate: 86 P: 5 IA: 161 QRS: -3 QRSD: 91 T: 22 QT: 366 QTc: 440 Interpretive Statements SINUS RHYTHM WITH FREQUENT VENTRICULAR PREMATURE COMPLEXES IN A BIGEMINAL PATTERN LOW QRS VOLTAGE IN PRECORDIAL LEADS [QRS DEFLECTION < 1.0 mV IN CHEST LEADS] POOR R-WAVE PROGRESSION ABNORMAL RHYTHM ECG No previous ECG available for comparison Electronically Signed On 12-18-2024 13:23:19 CDT by Boris Steiner M.D.
--- OUTSIDE RECORDS SUMMARY | 2024-12-18 11:28 | XMS_ITS | Referral Summary ---
Author Organization [address] Address [address] [place] [id number] Care Team Providers Care Wine [employer] Spir[employer] Clerk Name Role Phone Rigo Harrison MD Unavailable [phone] Maryellen Villanueva NP Primary Care Provider [phone] Encounters Date Type Department Care Team Description 12/18/2024 Nurse Triage [facility] Medical [facility] Primary Care at [address] [address] Maryellen Villanueva NP 11/27/2024 Results Follow-Up [facility] Primary Care at [address] [id number] Micaela Stahl NP Albumin Creatinine Ratio, Urine, Hemoglobin A1c 11/23/2024 8:09 AM CDT - 11/23/2024 11:59 [place] [address] Type 2 diabetes mellitus without complication, without long-term current use of insulin (HCC) Discharge Disposition: Discharge to home or self care 11/23/2024 8:15 AM CDT Lab [facility] Medical [facility] Outpatient Lab at [address] [address] from Last 3 Months Allergies No known active allergies Medications cetirizine (ZyrTEC) 10 mg tablet Take 1 tablet (10 mg total) by mouth daily Active loratadine (Claritin) 10 mg tablet daily Active progesterone (PROMETRIUM) 100 mg capsule Take 1 capsule (100 mg total) by mouth daily 84 capsule 2 4 02/03/20 25 Active Additional Information Patient not taking.Reported on 08/13/2024 estradioL (VIVELLE-DOT) 0.05 mg/[address] one patch on the skin twice weekly 24 patch 2 4 Active Additional Information Patient not taking.Reported on 08/13/2024 valACYclovir (VALTREX) 1 gram tablet Take 2 tabs (2000 mg) 2 times a days for 1 day. 8 tablet 3 4 Active rosuvastatin (CRESTOR) 20 mg tablet Take 1 tablet (20 mg total) by mouth daily 90 tablet 1 5 Active albuterol HFA (PROVENTIL HFA,VENTOLIN HFA,PROAIR HFA) 90 mcg/actuation inhaler Inhale 2 puffs every 4 (four) hours as needed for wheezing or shortness of breath 1 each 1 5 Active montelukast (SINGULAIR) 10 mg tablet Take 1 tablet (10 mg total) by mouth nightly 90 tablet 1 5 Active semaglutide (OZEMPIC) 0.25 mg or 0.5 mg (2 mg/3 mL) pen injector injection Inject 0.5 mg under the skin every 7 days 2 mL 1 5 Active lisinopriL (PRINIVIL,ZESTR IL) 5 mg tablet TAKE 1 TABLET(5 MG) BY MOUTH DAILY 90 tablet 1 5 Active Active Problems Problem Noted Date Diagnosed Date Menopause 10/11/2023 Assessment & Plan (10/11/2023 1:43 PM CDT): Discussed options for treatment of her menopausal symptoms. Patient is most interested in HRT. We will prescribe the Vivelle-Dot patch 0.5 mg to apply twice a week. We will also prescribe 100 mg of Prometrium to take daily. Patient was counseled on the risks of HRT and wishes to proceed. We will see her back in the office in 2 months to assess her response to the HRT. Questions were answered and patient is agreeable. Positive colorectal cancer screening using Colog uard test 07/28/2022 Overview (07/28/2022): Added automatically from request for surgery [id number] Type 2 diabetes mellitus wit hout complication, without long-term current use of insulin 04/13/2022 Assessment & Plan (08/13/2024 9:11 AM CDT): A1c continues to gradually increase--now 6.6. Pt experiencing side effects with Metformin. Will stop Metformin and replaced with Ozempic. Education provided. 0.25 mg weekly x 4 weeks then increase to 0.5 mg weekly. Recheck A1c in 3 months to check on the A1c. Assessment & Plan (02/15/2024 8:29 AM CDT): A1c mildly worsened from 6.0% to 6.2%. Stress has been high so has been eating out more than typical. Will continue Metformin 1,000 mg daily and encourage better adherence to diet/exercise. Assessment & Plan (08/15/2023 8:42 AM CDT): A1c 6.0%, previous 5.8%. Adhere to diet/exercise, continue Metformin XR 1,000 mg daily. Assessment & Plan (02/14/2023 8:44 AM CDT): A1c 5.8% in office today. Patient would like to return to Metformin 1,000 mg as she felt she had more weight loss improvement on the higher dose. Will go back to 1,000 mg. Labs ordered for next visit. Assessment & Plan (10/04/2022 10:00 AM CDT): Decreased Metformin at previous visit to 500 mg daily. Awaiting labs today. Assessment & Plan (07/14/2022 2:30 PM PIE CRUST MIXER): A1c has improved to 6.4%, previous 7.1% Patient has made lifestyle changes and has lost about 22 lbs. Will decrease the Metformin to 500 mg daily. Assessment & Plan (04/13/2022 9:54 AM PIE CRUST MIXER): A1c 7.1, education provided in regards to new diagnosis. Foot exam normal in office. Discussed Metformin vs lifestyle modifications, pt opts for starting the Metformin. Will start Metformin XR at 500 mg daily x 2 weeks and increase to 1,000 mg daily. Potential side effects discussed. Also, starting statin medication. Pt already taking DEBBIE. Follow up in 3 months. Class 2 severe obesity due t o excess calories with serious comorbidity and body mass index (BMI) of 35.0 to 35.9 in adult 04/10/2022 Assessment & Plan (02/14/2023 8:34 AM CDT): Healthy, low carbohydrate lifestyle and exercise for 150min/week recommended Adjusted calorie deficit provided. Assessment & Plan (10/04/2022 10:02 AM CDT): Healthy, low carbohydrate lifestyle and exercise for 150min/week recommended Continuing to lose weight. Assessment & Plan (07/14/2022 2:31 PM PIE CRUST MIXER): Has lost 22 lbs since our last visit, making lifestyle changes and cutting out sugar in the diet. Whole family on board. Has also started exercising. Keep up the great work Assessment & Plan (04/13/2022 9:52 AM PIE CRUST MIXER): Healthy, low carbohydrate lifestyle and exercise for 150min/week recommended Assessment & Plan (04/10/2022 10:16 AM CDT): Patient notes she has a difficult time losing weight despite healthy food choices. Discussed CHIP program and nutrition. Will first get labs to ensure not contributing factors. In the meantime, healthy, low carbohydrate lifestyle and exercise for 150min/week recommended Hypertension associated with diabetes 07/10/2021 Assessment & Plan (02/15/2024 8:29 AM CDT): BP stable in office, continues Lisinopril. Renal function in good shape. Assessment & Plan (08/15/2023 8:43 AM CDT): BP stable in office, continues Lisinopril. Renal function in good shape. Assessment & Plan (02/14/2023 8:32 AM CDT): BP stable in office, continues Lisinopril 5 mg daily. Assessment & Plan (10/04/2022 10:01 AM CDT): BP stable in office, continues Lisinopril 5 mg daily. Awaiting labs Assessment & Plan (07/14/2022 2:30 PM PIE CRUST MIXER): BP stable in office, continues Lisinopril 5 mg daily. Assessment & Plan (04/13/2022 9:52 AM PIE CRUST MIXER): BP stable in office, diastolic borderline but will continue with Lisinopril 5 mg daily for now. Assessment & Plan (04/10/2022 10:13 AM CDT): BP stable in office, diastolic borderline but will continue with Lisinopril 5 mg daily for now. Labs ordered. Assessment & Plan (07/20/2021 11:06 PM PIE CRUST MIXER): Continue with meds and plan of treatment. Continue to loose weight. Watch salt intake and avoid excessive salty food. Assessment & Plan (07/10/2021 3:21 PM PIE CRUST MIXER): Continue with Lisinopril 5mg one daily. Continue with the TRIANGLE diet for weight loss, note has lost 25 pounds. Push fluids. Avoid salt in diet, and salty fluids. 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 Harrison Starting PT again today Continue with current plan. Assessment & Plan (07/20/2021 11:15 PM PIE CRUST MIXER): Will increase Flexeril to 5mg every 8 hours during the day and 10mg at night. Ice alternate heat every 4 hours for 10-15 minutes. Limited activity Set up for MRI without contrast Open or closed.unit Also talked with Neurosurgeon about seeing patient. Will call back. Assessment & Plan (07/10/2021 3:25 PM PIE CRUST MIXER): Lumbar spine xray today. No heavy lifting. No mopping, vacuuming or other activities that can place pressure or cause pain in back. Ice alt. Head 10-15 minutes 2-3 times a day. Flexeril 10mg one at HS for 10 days. Ibuprofen 400mg every 8 hours with food Kenalog 40mg IM today. Call if problems If you are having severe pain and unable to walk, please go to the ER. 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 Make sure diet is balanced. Vit C 500mg bid Vit D3 1000IU daily. Avoid stress. Immunizations Immunization Administration Dates Next Due Influenza, Quadrivalent, Spl it, Preservative Free, Intramuscular 02/24/2019 Influenza, Unspecified 08/15/2023(Deferr ed: Patient Refused),06/06/2023,06/06/2022, 023(Deferred: Patient Refused),04/01/2022,03/15/2021 Tdap 02/15/2024 Social History Tobacco Use Types Packs/Day Years Used Date Smoking Tobacco: Never Passive Smoke Exposure: Never Smokeless Tobacco: Never AUDIT-C Answer Date Recorded Q1: How often do you have a drink containing alc ohol? Never 10/11/2023 Average Number of Drinks Not on file 024 Frequency of Binge Drinking Not on file 12/2023 PHQ-2 Answer Date Recorded PHQ-2 Total Score (If total score is 3 or more points, staff should administer the PHQ-9) 0 08/13/2024 Personal Safety Answer Date Recorded Have you ever been in or are you currently in a harmful physical or emotional relationship or is someone making you feel afraid or unsafe? Denies 08/30/2022 Comments No Sex and Gender Information Value Date Recorded Sex Assigned at Not on file Legal Sex Female 4:47 PM PIE CRUST MIXER Gender Identity Not on file Sexual Orientation Not on file Last Filed Vital Signs Vital Sign Reading Time Taken Comments Blood Pressure 120/88 08/13/2024 8:37 AM CDT Pulse 80 08/13/2024 8:37 AM CDT Temperature 36.8 C (98.2 F) 08/13/2024 8:37 AM CDT Respiratory Rate 18 12/12/2023 7:35 PM CDT Oxygen Saturation 96% 08/13/2024 8:37 AM CDT Inhaled Oxygen Concentration - - Weight 100.2 kg (221 lb) 08/13/2024 8:37 AM CDT Height 162.6 cm (5' 4) 08/13/2024 8:37 AM CDT Body Mass Index 37.93 08/13/2024 8:37 AM CDT Plan of Treatment Not on file Procedures Procedure Name Priority Date/Time Associated Diagnosis Comments HEMOGLOBIN A1C Routine 11/23/2024 8:09 AM CDT Type 2 diabetes mellitus without complication, without long-term current use of insulin (HCC) ALBUMIN CREATININE RATIO, URINE Routine 11/23/2024 8:09 AM CDT Type 2 diabetes mellitus without complication, without long-term current use of insulin (HCC) HEPATITIS C ANTIBODY Routine 08/08/2024 4:20 PM PIE CRUST MIXER Encounter for hepatitis C screening test for low risk patient EGFR Routine 08/08/2024 4:20 PM PIE CRUST MIXER Hypertension associated with diabetes (HCC) Type 2 diabetes mellitus without complication, without long-term current use of insulin (HCC) LIPID PANEL Routine 08/08/2024 4:20 PM PIE CRUST MIXER Hypertension associated with diabetes (HCC) Type 2 diabetes mellitus without complication, without long-term current use of insulin (HCC) HM DIABETES EYE EXAM Routine 07/17/2024 4:04 PM PIE CRUST MIXER PAP AND HPV, REFLEX TO HPV GENOTYPES Routine 10/11/2023 12:15 PM CDT Encounter for annual routine gynecological examination COLONOSCOPY 08/30/2022 7:17 AM CDT HM MAMMOGRAPHY Routine 08/08/2019 from Last 3 Months or Most Recently Relevant to Health Maintenance Results * Albumin Creatinine Ratio, Urine (11/23/2024 8:09 AM CDT) [facility] Albumin Ur <12.0 mg/L Comment: Interpretive Data No reference range established. Current interpretive data was last revised 2018. Creatinine Ur 202.2 mg/dL [facility] Comment: Interpretive Data No reference range established. Current interpretive data was last revised 2018. Albumin Creatinine Ratio, Ur <6 1 - 29 mg/g [facility] Urine 11/23/2024 8:09 AM CDT 11/23/2024 3:23 PM CDT us Maryellen Villanueva NP LAB URINE ORDERABLES Final Resul t Performing Organization Address [facility] de Phone Number GLEN[facility] [address] [address] * (ABNORMAL) Hemoglobin A1c (11/23/2024 8:09 AM CDT) [facility] Hgb A1C 6.0(H) 4.0 - 5.6 % Estimated Average Glucose 126 mg/dL [facility] Comment: The ADA recommends reporting an estimated Average Glucose (eAG) with all Hemoglobin A1c results using the equation derived from a study of 507 normal and diabetic adults. Minority populations were underrepresented and children were not included. (Diabetes Care 31:4761-4731, 2008). The eAG is not equivalent to a fasting glucose. Blood 11/23/2024 8:09 AM CDT 11/23/2024 3:23 PM CDT us Maryellen Villanueva NP LAB BLOOD ORDERABLES Final Resul t Performing Organization Address [facility] Co de Phone Number [facility] [address] [address] [facility] [employer] [place], [place] [id number] * eGFR (08/08/2024 4:20 PM PIE CRUST MIXER) eGFR 80 >=60 mL/min/1. 73 m2 Comment: Interpretive Data Reference Interval Normal >/= 90 mL/min/1.73m2 Mildly decreased* 60 - 89 mL/min/1.73m2 Mildly to moderately decreased 45 - 59 mL/min/1.73m2 Moderately to severely decreased 30 - 44 mL/min/1.73m2 Severely decreased 15 - 29 mL/min/1.73m2 Kidney Failure < 15 mL/min/1.73m2 *Relative to young adult level Estimated glomerular filtration rate is determined by the 2020 CKD-EPI equation recommended by the National Kidney Foundation (A Unifying Approach to GFR Estimation: Recommendations of the NKF-ASK Task Force on Reassessing the Inclusion of Race in Diagnosing Kidney Disease, JASN 2020). The CKD-EPI equation should not be used for patients with unstable renal function and has not been validated in children and those over 70. Current interpretive data was last reviewed 2021. Blood 08/08/2024 4:20 PM PIE CRUST MIXER 08/08/2024 9:36 PM PIE CRUST MIXER us Maryellen Villanueva NP LAB BLOOD ORDERABLES Final Resul t [facility] [address] [address] Department [place] [address] * Hepatitis C antibody Blood (08/08/2024 4:20 PM PIE CRUST MIXER) Hep C Ab Nonreactive Nonreactive Comment: Interpretive Data Nonreactive: Antibodies to HCV not detected. Does NOT exclude the possibility of recent exposure to HCV. Equivocal: Equivocal for HCV antibodies. Supplemental molecular testing will be automatically performed to determine infection status in accordance with current CDC screening recommendations. Reactive: Positive for HCV antibodies. This may represent current or past HCV infection. Supplemental molecular testing will be automatically performed to determine current infection status in accordance with current CDC screening recommendations. Interpretive data was last revised on 2019. Blood 08/08/2024 4:20 PM PIE CRUST MIXER 08/08/2024 9:03 PM PIE CRUST MIXER us Maryellen Villanueva NP LAB MICROBIOLOGY - GENERAL ORDER CHRISTINE Final Result [facility] [address] Department [place] [address] * (ABNORMAL) Lipid panel (08/08/2024 4:20 PM PIE CRUST MIXER) Cholesterol 172 30 - 199 mg/dL Comment: Interpretive Data Ages < or = 19 years Acceptable: <170 mg/dL Borderline high: 170-199 mg/dL High: >or= 200 mg/dL Ages > or = 20 years Desirable: <200 mg/dL Borderline high: 200-239 mg/dL High: >or= 240 mg/dL Literature References: 1. Expert Panel on Integrated Guidelines for Cardiovascular Health and Risk Reduction in Children and Adolescents. Pediatrics 2011;128:S213 2. NCEP Expert Panel. Circulation 2004;110:227 Current Interpretive Data was last revised on 2018. Triglycerides 199(H) <=149 mg/dL [facility] MADRIGAL Comment: Interpretive Data Ages < or = 9 years Acceptable: <75 mg/dL Borderline high: 75-99 mg/dL High: >or= 100 mg/dL Ages 10 to 20 years Acceptable: <90 mg/dL Borderline high: 90-129 mg/dL High: >or= 130 mg/dL Ages > or = 20 years Desirable: <150 mg/dL Borderline high: 150-199 mg/dL High: 200-499 mg/dL Very high: >or= 499 mg/dL Literature References: 1. Expert Panel on Integrated Guidelines for Cardiovascular Health and Risk Reduction in Children and Adolescents. Pediatrics 2011;128:S213 2. NCEP Expert Panel. Circulation 2004;110:227 Current Interpretive Data was last revised on 2018. HDL 45 >=40 mg/dL [facility] MADRIGAL Comment: Interpretive Data Ages < or = 19 years Acceptable: >45 mg/dL Borderline low: 40-45 mg/dL Low: <40 mg/dL Ages > or = 20 years Desirable: >or= 60 mg/dL Low: <40 mg/dL Literature References: 1. Expert Panel on Integrated Guidelines for Cardiovascular Health and Risk Reduction in Children and Adolescents. Pediatrics 2011;128:S213 2. NCEP Expert Panel. Circulation 2004;110:227 Current Interpretive Data was last revised on 2018. LDL, calculated 93 <=129 mg/dL [facility] MADRIGAL Comment: Interpretive Data Ages < or = 19 years Acceptable: <110 mg/dL Borderline high: 110-129 mg/dL High: >or= 130 mg/dL Ages > or = 20 years Optimal: <100 mg/dL Near optimal: 100-129 mg/dL Borderline high: 130-159 mg/dL High: >160 mg/dL Calculated using the Abe LDL-C estimating equation. This equation was implemented on 2024. Prior to this date LDL-C was estimated using the Friedewald equation. Literature References: 1. Expert Panel on Integrated Guidelines for Cardiovascular Health and Risk Reduction in Children and Adolescents. Pediatrics 2011;128:S213 2. NCEP Expert Panel. Circulation 2004;110:227 3. Abe Mccartney et al. MEGAN Cardiol. 2019October 04;5(5):540-548. doi: 10.1001/jamacardio.2020.0013 Current Interpretive Data was last revised on 2024. Non-HDL Cholesterol 127 mg/dL [facility] MADRIGAL Comment: Interpretive Data Ages < or = 19 years Acceptable: <120 mg/dL Borderline high: 120-144 mg/dL High: >145 mg/dL Ages > or = 20 years When triglycerides are >200 mg/dL, Non-HDL cholesterol is a secondary target of therapy with treatment goals that are 30 mg/dL greater than the LDL cholesterol target. Literature References: 1. Expert Panel on Integrated Guidelines for Cardiovascular Health and Risk Reduction in Children and Adolescents. Pediatrics 2011;128:S213 2. NCEP Expert Panel. Circulation 2004;110:227 Current Interpretive Data was last revised on 2018. Chol/HDL ratio 4 [facility] MADRIGAL Blood 08/08/2024 4:20 PM PIE CRUST MIXER 08/08/2024 9:03 PM PIE CRUST MIXER us Maryellen Villanueva NP LAB BLOOD ORDERABLES Final Resul t [facility] MADRIGAL [address] [address] Department [place] [address] * DIABETES EYE EXAM (07/17/2024 4:04 PM PIE CRUST MIXER) SCRIBED HM DIABETIC DILATED EYE EXAM Normal Balbina Aceves MA HEALTH MAINTENANCE Final Result * Pap and HPV, reflex to HPV Genotypes (10/11/2023 12:15 PM CDT) CLINICAL INFORMATION: [facility] Comment: Routine exam SCREENING LMP [facility] Comment:[id number] Previous Pap [facility] Comment:NONE GIVEN Prev. Bx [facility] Comment:NONE GIVEN SOURCE: [facility] Comment:Cervix, Endocervix Pap, specimen adequacy [facility] Comment: Satisfactory for evaluation. Endocervical/transformation zone component present. HPV interp [facility] Comment: Cytology Results: Negative for intraepithelial lesion or malignancy. COMMENTS [facility] Comment: This Pap test has been evaluated with computer assisted technology. Non Linear Editor [facility] Comment: BES, CT(ASCP) CT screening location: [place] [address] [address] [address] Comment [facility] Comment: EXPLANATORY NOTE: The Pap is a screening test for cervical cancer. It is not a diagnostic test and is subject to false negative and false positive results. It is most reliable when a satisfactory sample, regularly obtained, is submitted with relevant clinical findings and history, and when the Pap result is evaluated along with historic and current clinical information. Human papillomavirus DNA, High Risk E6/E7 Not Detected NOT DETECTED [employer] [facility]Brenda Ramirez [facility] Comment: Not Detected High Risk HPV types (16,18,31,33,35,39,45,51,52, 56,58,59,66,68) were not detected. Other HPV types which cause anogenital lesions may be present. The significance of the other types of HPV in malignant processes has not been established. Methodology: Real Time PCR Thin prep 10/11/2023 12:1 5 PM CDT 10/12/2023 6:10 AM CDT Velvet Pierce NP LAB CYTOLOGY ORDERABLES Final Re sult [facility] [address] [id number] [employer]/[place] [address] [place] [address] * COLONOSCOPY (08/30/2022 7:17 AM CDT) Anatomical Region Laterality Modality Other Narrative Procedure Note Ehsan Cross MD - 08/30/2022 7:17 AM CDT [facility] Patient Name: Fara Mcfadden Procedure Date: 08/30/2022 7:17 AM Date of : 1975 Admit Type: Outpatient Age: 47 Gender: Female Attending MD: Ehsan Cross M.D. Room: [facility] ENDOSCOPY ROOM 3 Note Status: Finalized Patient Profile: This is a 47 year old female hx of HTN, DM here for positive cologuard. no family hx of colon cancer.no prior colonoscopies Procedure: Colonoscopy Indications: Positive Cologuard test Referring MD: Maryellen Villanueva, F.N.P. Providers: Ehsan Cross M.D. Impression: - Perianal skin tags found on perianal exam. - The examined portion of the ileum was normal. - One 4 mm polyp in the descending colon, removedwith a cold snare. Resected and retrieved. - Diverticulosis in the ascending colon. - Internal hemorrhoids. Recommendation: - Patient has a contact number available for emergencies. The signs and symptoms of potential delayed complications were discussed with thepatient. Return to normal activities tomorrow. Written discharge instructions were provided to thepatient. - Discharge patient to home (with escort). - Resume previous diet. - Continue present medications. - Await pathology results. - Repeat colonoscopy in 7-10 years for surveillance based on pathology results. - Return to primary care physician as previously scheduled. Medicines: Monitored Anesthesia Care Complications: No immediate complications. Estimated Blood Loss: Estimated blood loss was minimal. Procedure: Pre-Anesthesia Assessment: - Prior to the procedure, a History and Physicalwas performed, and patient medications and allergieswere reviewed. The patient is competent. The risks and benefits of the procedure and the sedation optionsand risks were discussed with the patient. Allquestions were answered and informed consent was obtained. Patient identification and proposed procedure were verified by the physician, the nurse and the civil litigation attorney in the endoscopy suite. Mental Status Examination: normal. Prophylactic Antibiotics: The patient does not require prophylactic antibiotics. Prior Anticoagulants: The patient has taken no anticoagulant or antiplatelet agents. ASA Grade Assessment: II - A patient with mild systemicdisease. After reviewing the risks and benefits, the patient was deemed in satisfactory condition to undergo the procedure. The anesthesia plan was to use monitored anesthesia care (MAC). Immediately prior to administration of medications, the patient was re-assessed for adequacy to receive sedatives. The heart rate, respiratory rate, oxygen saturations, blood pressure, adequacy of pulmonary ventilation,and response to care were monitored throughout the procedure. The physical status of the patient was re-assessed after the procedure. The benefits, risks and alternatives of theprocedure and sedation were discussed and informed consentwas obtained. All questions were answered. Please referto the signed informed consent document in the medical record. The scope was passed under direct vision.The Colonoscope [id number] was introducedthrough the anus and advanced to the the terminal ileum.The colonoscopy was performed without difficulty. The patient tolerated the procedure well. The qualityof the bowel preparation was excellent. The bowel preparation used was Miralax via split dose instruction. Bowel prep was administered using asplit dose. Findings: Skin tags were found on perianal exam. The terminal ileum appeared normal. A 4 mm polyp was found in the descending colon. The polyp wassessile. The polyp was removed with a cold snare. Resection and retrieval were complete. One small-mouthed diverticulum was found in the ascending colon. Internal hemorrhoids were found during retroflexion. Ehsan Cross M.D. 08/30/2022 8:12:01 AM Number of Addenda: 0 Note Initiated On: 08/30/2022 7:17 AM Procedure Code(s): --- Professional --- 17924, Colonoscopy, flexible; with removal of tumor(s), polyp(s), or other lesion(s) by snare technique --- Technical --- 59708, Colonoscopy, flexible; with removal of tumor(s), polyp(s), or other lesion(s) by snare technique Diagnosis Code(s): --- Professional --- K64.8, Other hemorrhoids D12.4, Benign neoplasm of descending colon K64.4, Residual hemorrhoidal skin tags R19.5, Other fecal abnormalities K57.30, Diverticulosis of large intestine without perforation orabscess without bleeding --- Technical --- K64.8, Other hemorrhoids D12.4, Benign neoplasm of descending colon K64.4, Residual hemorrhoidal skin tags R19.5, Other fecal abnormalities K57.30, Diverticulosis of large intestine without perforation orabscess without bleeding CPT copyright 2020 [employer]. All rights reserved. The codes documented in this report are preliminary and upon dna analyst reviewmay be revised to meet current compliance requirements. Recognized by the [employer] for promoting quality in endoscopy Ehsan Cross MD ENDOSCOPY PROCEDURES Final Resul t * HM MAMMOGRAPHY (08/08/2019) Mammography Normal Historical Provider HEALTH MAINTENANCE Final Result from Last 3 Months or Most Recently Relevant to Health Maintenance Insurance [facility] FED[employer]AL [facility] [employer]AL [facility] [employer] Advance Directives For more information, please contact: [phone] * Full Code (Latest Code Status on File) Date Activated Date Inactivated Comments 08/30/2022 7:11 AM 08/30/2022 12:57 PM * Full Code Date Activated Date Inactivated Comments 08/30/2022 7:11 AM 08/30/2022 7:11 AM Care Teams Wine And Spirits Clerk Relationship Specialty Start Date End Date Maryellen Villanueva NP PCP - General Family Medicine 04/05/22 Rigo Harrison MD Consulting Physician Neurosurgery 08/21/21
--- OUTSIDE RECORDS SUMMARY | 2024-12-18 11:28 | XMS_ITS | Encounter Summary ---
Author Organization [facility] Healthcare Address [address] [place] [id number] Care Team Providers Care Press Smith Helper Name Role Phone Rigo Harrison MD Unavailable [phone] Maryellen Villanueva NP Primary Care Provider [phone] Reason for Visit * Reason Onset Date Comments Chest Pain 12/18/2024 Encounter Details Date Type Department Care Team (Late st Contact Info) Description 12/18/2024 Nurse Triage [facility] Medical Group Primary Care at [address] [phone] Maryellen Villanueva NP [address] [place] [address] [address] [place] [address] Social History Tobacco Use Types Packs/Day Years [...] on file 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 Background Patient calling into network operations lead stating that she has been experiencing chest tightness with pain radiating from bilateral ears down into jaw and neck x 4 days. States she has been getting these symptoms intermittently over the past month, but they became constant in the past 4 days. Feels fine otherwise. States she thought it was heartburn and attempted an antacid but got no relief. Advised ER forevaluation to r/o serious cause for symptoms. 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 Advised call back with further questions or concerns. Disposition No disposition on file. Reason for Disposition No Reason for Disposition on file. No Initial Assessment on file. No Additional Information on file. Protocols Used No protocols used. * Telephone Encounter - Carole Louis RN - 12/18/2024 9:41 AM CDT Regarding: mild chest tightness, jaw and neck pain, ears. ----- Message from Carmen Lundy sent at 12/18/2024 9:31 AM CDT ----- Symptom Based Call Chief Complaint(s): mild chest tightness, jaw and neck pain, ears. Duration: 4 days What type of symptom(s) is the patient experiencing? Red Flag. Is the patient concerned they are experiencing a medical emergency requiring an ambulance? No Additional Comments: Home COVID test negative. I don't know what is going on but I don't feel right. Please call patient's work line at [phone]. Does message need to be routed? Yes-Action Needed documented in this encounter Plan of Treatment Not on file documented as of this encounter Visit Diagnoses Not on filedocumented in this encounter Care Teams Press Smith Helper Relationship Specialty Start Date End Date Maryellen Villanueva NP PCP - General Family Medicine 04/05/22 Rigo Harrison MD Consulting Physician Neurosurgery 08/21/21 documented as of this encounter
--- OUTSIDE RECORDS SUMMARY | 2024-12-18 11:28 | XMS_ITS | Clinical Summary ---
Author Organization [address] Address [address] [place] [id number] Care Team Providers Care Hospital Housekeeper Name Role Phone Rigo Harrison MD Unavailable [phone] Maryellen Villanueva NP Primary Care Provider [phone] Allergies No known active allergies Medications cetirizine [...] (07/28/2022): Added automatically from request for surgery [id number] Type 2 diabetes mellitus wit hout complication, [...] today. Assessment & Plan (07/14/2022 2:30 PM ENGINEER AUTOMATED EQUIPMENT): A1c has improved to 6.4%, previous 7.1% Patient has made lifestyle changes and has lost about 22 lbs. Will decrease the Metformin to 500 mg daily. Assessment & Plan (04/13/2022 9:54 AM ENGINEER AUTOMATED EQUIPMENT): A1c 7.1, education provided in regards to [...] weight. Assessment & Plan (07/14/2022 2:31 PM ENGINEER AUTOMATED EQUIPMENT): Has lost 22 lbs since our last visit, making lifestyle changes and cutting out sugar in the diet. Whole family on board. Has also started exercising. Keep up the great work Assessment & Plan (04/13/2022 9:52 AM ENGINEER AUTOMATED EQUIPMENT): Healthy, low carbohydrate lifestyle and exercise for [...] labs Assessment & Plan (07/14/2022 2:30 PM ENGINEER AUTOMATED EQUIPMENT): BP stable in office, continues Lisinopril 5 mg daily. Assessment & Plan (04/13/2022 9:52 AM ENGINEER AUTOMATED EQUIPMENT): BP stable in office, diastolic borderline but will continue with Lisinopril 5 mg daily for now. Assessment & Plan (04/10/2022 10:13 AM CDT): BP stable in office, diastolic borderline but will continue with Lisinopril 5 mg daily for now. Labs ordered. Assessment & Plan (07/20/2021 11:06 PM ENGINEER AUTOMATED EQUIPMENT): Continue with meds and plan of treatment. Continue to loose weight. Watch salt intake and avoid excessive salty food. Assessment & Plan (07/10/2021 3:21 PM ENGINEER AUTOMATED EQUIPMENT): Continue with Lisinopril 5mg one daily. Continue with the MODOC diet for weight loss, note has lost 25 pounds. Push fluids. Avoid salt in diet, and salty fluids. 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 Harrison Starting PT again today Continue with current plan. Assessment & Plan (07/20/2021 11:15 PM ENGINEER AUTOMATED EQUIPMENT): Will increase Flexeril to 5mg every 8 hours during the day and 10mg at night. Ice alternate heat every 4 hours for 10-15 minutes. Limited activity Set up for MRI without contrast Open or closed.unit Also talked with Neurosurgeon about seeing patient. Will call back. Assessment & Plan (07/10/2021 3:25 PM ENGINEER AUTOMATED EQUIPMENT): Lumbar spine xray today. No heavy lifting. [...] outbreak Assessment & Plan (07/10/2021 3:32 PM ENGINEER AUTOMATED EQUIPMENT): Valtrex 500mg one tab bid for 5 days. Make sure diet is balanced. Vit C 500mg bid Vit D3 1000IU daily. Avoid stress. Encounters Date Type Department Care Team Description 12/18/2024 Nurse Triage [facility] Medical Group Primary Care at [address] [phone] Maryellen Villanueva NP 11/27/2024 Results Follow-Up [facility] Primary Care at [address] [phone] Micaela Stahl NP Albumin Creatinine Ratio, Urine, Hemoglobin A1c 11/23/2024 8:15 AM CDT Lab [facility] Outpatient Lab at [address] [phone] 11/23/2024 8:09 AM CDT - 11/23/2024 11:59 PM CDT Hospital Encounter [address] [address] Type 2 diabetes mellitus without complication, without long-term current use of insulin (HCC) Discharge Disposition: Discharge to home or self care from Last 3 Months Immunizations Immunization Administration Dates Next Due Influenza, Quadrivalent, Spl it, Preservative Free, Intramuscular 02/24/2019 Influenza, Unspecified 08/15/2023(Deferr ed: Patient Refused),06/06/2023,06/06/2022, 023(Deferred: Patient Refused),04/01/2022,03/15/2021 Tdap 02/15/2024 Surgical History Surgery Date Site/Laterality Comments KIDNEY STONE SURGERY BACK SURGERY 08/04/2021 - 09/03/2021 COLONOSCOPY 08/30/2022 Medical History Medical History Date Comments Kidney stones Hypertension Motion sickness Type 2 diabetes mellitus (HCC) Family History Medical History Relation Name Comments Diabetes type I Maternal Grandmother Relation Name Status Comments Maternal Grandmother Social History Tobacco Use Types Packs/Day Years Used Date Smoking Tobacco: Never Passive Smoke Exposure: Never Smokeless Tobacco: Never AUDIT-C Answer Date Recorded Q1: How often do you have a drink containing alc ohol? Never 10/11/2023 Average Number of Drinks Not on file 024 Frequency of Binge Drinking Not on file 0512/2023 PHQ-2 Answer Date Recorded PHQ-2 Total Score [...] on file Legal Sex Female 4:47 PM ENGINEER AUTOMATED EQUIPMENT Gender Identity Not on file Sexual Orientation Not on file Obstetrics History Para Term AB IAB SAB Ectopic Multiple Livin g Live Births 4 3 2 1 1 1 3 3 Date Outcome GA Total Labor Labor/2nd/3rd Weight Sex Type Anes PTL Dulce A1 A5 Name Clin 12/19 Term 3.629 kg (8 lb) F Vaginal Living 06/06 SAB SAB 12/07 36w 0d 3.175 kg (7 lb) F Vaginal Living 07/28 Term 38w 0d 4.082 kg (9 lb) F Vaginal Living Last Filed Vital Signs Vital Sign Reading [...] 08/13/2024 8:37 AM CDT Plan of Treatment Health Maintenance Due Date Last Done Comments Hepatitis B Screening 1992 Pneumococcal vaccine <65 (1 of 2 - PCV) 1993 Covid-19 Vaccine (4 - 2023-2 5 season) 2024 05/11/2021, 08/15/2020, 07/26/2020 Zoster Vaccine (1 of 2) 2024 Breast Cancer Screening-Mammogram 08/13/2024 08/14/2023, 08/08/2019, 08/08/2019, Additional history exists Foot Exam 08/14/2024 08/15/2023, 04/13/2022 Influenza Vaccine (#1) 2025 , 04/27/2023, 06/06/2022, Additional history exists Hemoglobin A1C 05/25/2025 11/23/2024, 03/10/2024, 02/14/2024, Additional history exists Dilated Eye Exam 07/17/2025 07/17/2024, , 07/11/2023, Additional history exists Lipid Panel 08/08/2025 08/08/2024, 02/04, 08/09/2023, Additional history exists eGFR 08/08/2025 08/08/2024, 02/04, 08/09/2023, Additional history exists Depression Screening 08/13/2025 08/13/2024, 02/15/2024, 10/11/2023, Additional history exists Regular Well Visit/Exam 18-64 08/13/2025 08/13/2024, 10/11/2023 Albumin Creatinine Ratio, Urine 11/23/2025 11/23/2024, 08/15/2023, 07/12/2022 Cervical Cancer Screening 10/10/2026 10/11/2023, Colon Cancer Screening-Colonoscopy 08/30/20292022 DTaP/Tdap/Td Vaccine (2 - Td or Tdap) 02/14/2034 02/15/2024 Hepatitis C Screening Completed 08/08/2024 Procedures Procedure Name Priority Date/Time Associated Diagnosis Comments HEMOGLOBIN A1C Routine 11/23/2024 8:09 AM CDT Type 2 diabetes mellitus without complication, without long-term current use of insulin (HCC) ALBUMIN CREATININE RATIO, URINE Routine 11/23/2024 8:09 AM CDT Type 2 diabetes mellitus without complication, without long-term current use of insulin (HCC) HEPATITIS C ANTIBODY Routine 08/08/2024 4:20 PM ENGINEER AUTOMATED EQUIPMENT Encounter for hepatitis C screening test for low risk patient EGFR Routine 08/08/2024 4:20 PM ENGINEER AUTOMATED EQUIPMENT Hypertension associated with diabetes (HCC) Type 2 diabetes mellitus without complication, without long-term current use of insulin (HCC) LIPID PANEL Routine 08/08/2024 4:20 PM ENGINEER AUTOMATED EQUIPMENT Hypertension associated with diabetes (HCC) Type 2 diabetes mellitus without complication, without long-term current use of insulin (HCC) DIABETES EYE EXAM Routine 07/17/2024 4:04 PM ENGINEER AUTOMATED EQUIPMENT PAP AND HPV, REFLEX TO HPV GENOTYPES Routine 10/11/2023 12:15 PM CDT Encounter for annual routine gynecological examination COLONOSCOPY 08/30/2022 7:17 AM CDT MAMMOGRAPHY Routine 08/08/2019 from Last 3 Months or Most Recently Relevant to Health Maintenance Results * Albumin Creatinine Ratio, Urine (11/23/2024 8:09 AM CDT) Albumin Ur <12.0 mg/L Comment: Interpretive Data No reference range established. Current interpretive data was last revised 2018. Creatinine Ur 202.2 mg/dL [facility] Comment: Interpretive Data No reference range established. Current interpretive data was last revised 2018. Albumin Creatinine Ratio, Ur <6 1 - 29 mg/g [facility] Urine 11/23/2024 8:09 AM CDT 11/23/2024 3:23 PM CDT Maryellen Villanueva CLERICAL ASSOCIATE LAB URINE ORDERABLES Final Resul t [facility] [address] [address] Department [place] [address] * (ABNORMAL) Hemoglobin A1c (11/23/2024 8:09 AM CDT) Hgb A1C 6.0(H) 4.0 - 5.6 % Estimated Average Glucose 126 mg/dL [facility] MADRIGAL Comment: The ADA recommends reporting an estimated Average Glucose (eAG) with all Hemoglobin A1c results using the equation derived from a study of 507 normal and diabetic adults. Minority populations were underrepresented and children were not included. (Diabetes Care 31:5952-8698, 2008). The eAG is not equivalent to a fasting glucose. Blood 11/23/2024 8:09 AM CDT 11/23/2024 3:23 PM CDT us Maryellen Villanueva NP LAB BLOOD ORDERABLES Final Resul t Performing Organization Address City/[facility] Co de Phone Number [facility] [address] [address] [employer] [place], [place] [id number] * eGFR (08/08/2024 4:20 PM ENGINEER AUTOMATED EQUIPMENT) eGFR 80 >=60 mL/min/1. 73 m2 Comment: [...] of Race in Diagnosing Kidney Disease, JASN 202). The CKD-EPI equation should not be used for patients with unstable renal function and has not been validated in children and those over 70. Current interpretive data was last reviewed 2021. Blood 08/08/2024 4:20 PM ENGINEER AUTOMATED EQUIPMENT 08/08/2024 9:36 PM ENGINEER AUTOMATED EQUIPMENT us Maryellen Villanueva NP LAB BLOOD ORDERABLES Final Resul t Performing Organization Address City/[facility] Co de Phone Number [facility] [address] [address] [place] [address] * Hepatitis C antibody Blood (08/08/2024 4:20 PM ENGINEER AUTOMATED EQUIPMENT) Hep C Ab Nonreactive Nonreactive Comment: Interpretive [...] revised on 2019. Blood 08/08/2024 4:20 PM ENGINEER AUTOMATED EQUIPMENT 08/08/2024 9:03 PM ENGINEER AUTOMATED EQUIPMENT us Maryellen Villanueva NP LAB MICROBIOLOGY - GENERAL ORDER CHRISTINE Final Result [facility] [address] [address] Department [place] [address] * (ABNORMAL) Lipid panel (08/08/2024 4:20 PM ENGINEER AUTOMATED EQUIPMENT) Cholesterol 172 30 - 199 mg/dL Comment: [...] 4 [facility] Blood 08/08/2024 4:20 PM ENGINEER AUTOMATED EQUIPMENT 08/08/2024 9:03 PM ENGINEER AUTOMATED EQUIPMENT Maryellen Villanueva NP LAB BLOOD ORDERABLES Final Resul t [facility] [address] [address] Department of Laboratories [place], [place] [id number] * HM DIABETES EYE EXAM (07/17/2024 4:04 PM ENGINEER AUTOMATED EQUIPMENT) SCRIBED DIABETIC DILATED EYE EXAM Normal Balbina Aceves MA HEALTH MAINTENANCE Final Result * Pap and HPV, reflex to HPV Genotypes (10/11/2023 12:15 PM CDT) CLINICAL INFORMATION: [facility] Comment: Routine exam SCREENING LMP [facility] Comment:[id number] Previous Pap [facility] Comment:NONE GIVEN Prev. Bx [facility] Comment:NONE GIVEN SOURCE: [facility] Comment:Cervix, Endocervix Pap, specimen adequacy [facility] Comment: Satisfactory for evaluation. Endocervical/transformation zone component present. HPV interp [facility] Comment: Cytology Results: Negative for intraepithelial lesion or malignancy. COMMENTS [facility] Comment: This Pap test has been evaluated with computer assisted technology. Triage Assistant [facility] Comment: BES, CT(ASCP) CT screening location: [place] [address] [place] [address] Comment [facility] Comment: EXPLANATORY NOTE: The Pap is a [...] High Risk E6/E7 Not Detected NOT DETECTED [facility] Comment: Not Detected High Risk HPV types (16,18,31,33,35,39,45,51,52, 56,58,59,66,68) were not detected. Other HPV types which cause anogenital lesions may be present. The significance of the other types of HPV in malignant processes has not been established. Methodology: Real Time PCR Thin prep 10/11/2023 12:1 5 PM CDT 10/12/2023 6:10 AM CDT us Velvet Pierce CLERICAL ASSOCIATE LAB CYTOLOGY ORDERABLES Final Re sult [facility] [address] [place] [address] Leonides Ibarra[place] [address] [facility] [place] [address] * COLONOSCOPY (08/30/2022 7:17 AM CDT) Anatomical Region Laterality Modality Other Narrative Procedure Note Ehsan Cross MD - 08/30/2022 7:17 AM CDT [facility] Patient Name: Fara Mcfadden Procedure Date: 08/30/2022 7:17 AM Date of : 1975 Admit Type: Outpatient Age: 47 Gender: Female Attending MD: Ehsan Cross M.D. Room: [facility] ENDOSCOPY ROOM 3 Note Status: Finalized Patient Profile: This is a 47 year old female hx of HTN, DM here for positive cologuard. no family hx of colon cancer.no prior colonoscopies Procedure: Colonoscopy Indications: Positive Cologuard test Referring MD: Jeronimo Wayne Providers: Ehsan Cross M.D. Impression: - Perianal [...] by the physician, the nurse and the laundry technician in the endoscopy suite. Mental Status Examination: [...] scope was passed under direct vision.The Colonoscope [id number] was introducedthrough the anus and advanced to [...] 7:17 AM Procedure Code(s): --- Professional --- 18704, Colonoscopy, flexible; with removal of tumor(s), polyp(s), or other lesion(s) by snare technique --- Technical --- 21483, Colonoscopy, flexible; with removal of tumor(s), polyp(s), [...] perforation orabscess without bleeding CPT copyright 2020 [employer]. All rights reserved. The codes documented in this report are preliminary and upon paper hanger reviewmay be revised to meet current compliance requirements. Recognized by the [employer] for promoting quality in endoscopy Ehsan Cross MD ENDOSCOPY PROCEDURES Final Resul t * HM MAMMOGRAPHY (08/08/2019) Mammography Normal Historical Provider HEALTH MAINTENANCE Final Result from Last 3 Months or Most Recently Relevant to Health Maintenance Insurance [facility] [employer] [facility] [employer] [facility] [employer] Advance Directives For more information, please contact: [phone] * Full Code (Latest Code Status on File) Date Activated Date Inactivated Comments 08/30/2022 7:11 AM 08/30/2022 12:57 PM * Full Code Date Activated Date Inactivated Comments 08/30/2022 7:11 AM 08/30/2022 7:11 AM Care Teams Hospital Housekeeper Relationship Specialty Start Date End Date Maryellen Villanueva NP PCP - General Family Medicine 04/05/22 Rigo Harrison MD Consulting Physician Neurosurgery 08/21/21
--- OUTSIDE RECORDS SUMMARY | 2024-12-18 11:28 | XMS_ITS | Encounter Summary ---
Author Organization [facility] Healthcare Address [address] [place] [address] Care Team Providers Care Beam Builder Helper Name Role Phone Rigo Harrison MD Unavailable [phone] Maryellen Villanueva NP Primary Care Provider [phone] Encounter Details Date Type Department Care Team (Late st Contact Info) Description 11/27/2024 Results Follow-Up [facility] Medical Group Primary Care at [address] [phone] Micaela Stahl NP [address] [place] [address] [address] [place] [address] Albumin Creatinine Ratio, Urine, Hemoglobin A1c Social History Tobacco Use Types Packs/Day Years [...] on file 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
--- OUTSIDE RECORDS SUMMARY | 2024-12-18 11:28 | XMS_ITS | Data Portability ---
Author Organization [place] - [facility], [place] [address] Care Team Providers Care Transitional Care Manager Name Role Phone MARY PEARL Referring Provider BENNY BROWN Urologist Prateek Hess (spouse) Patient Designee Assessment Encounter Date Assessment Date Assessment LastModified by Organization Details LastModified Time 09/28/2019 09/28/2019 I reviewed her xrays with her. US is normal. She is to get an MRI next Tuesday. Will get a CT urogram in 2 weeks to see if this is a stone and to see if we need to do any treatment of this. [email or web address] Not available 09/30/2019 18:16:03 Plan of Treatment Reminders Order Date Submit Date Provider Last Modified By Organization Details Last Modified Time Details Appointments None recorded. Lab urinalysis , dipstick 2019 020 [email or web address], [address] [place], [address], 0 18:15:00 Referral None recorded. Procedures None recorded. Surgeries None recorded. Imaging None recorded. Medication Orders None recorded. Patient TargetsNo targets recorded. Patient InstructionsNo instructions recorded. Reason for Referral None Reported. Results Created Date Observation Date Name Description Value Unit Range Abnormal Flag Note LastModifiedBy Organization Detail LastModifiedTime 09/28/19 20 09/28/2019 urina lysis , dipst ick color Aisha Not Available [facility] [address] [place], [address], 09/28/2019 15:36:13 09/28/19 20 09/28/2019 urina lysis , dipst ick clarity Clear Not Available The [facility] [address], [place], [address], 09/28/2019 15:36:13 09/28/19 20 09/28/2019 urina lysis , dipst ick glucose NEG mg/dL neg Not Available The [address], [place], [address], 09/28/2019 15:36:13 09/28/19 20 09/28/2019 urina lysis , dipst ick bilirubin NEG neg Not Available The Urol [address], [place], [address], 09/28/2019 15:36:13 09/28/19 20 09/28/2019 urina lysis , dipst ick ketones NEG neg Not Available The [address], [place], [address], 09/28/2019 15:36:13 09/28/19 20 09/28/2019 urina lysis , dipst ick specific gravity >=1.03 0 1.000 - 1.030 Not Available The [facility] Center [address], [place], [address], 09/28/2019 15:36:13 09/28/19 20 09/28/2019 urina lysis , dipst ick blood/hemogl obin NEG hipolito/m cL neg Not Available The [facility] [address], [place], [address], 09/28/2019 15:36:13 09/28/19 20 09/28/2019 urina lysis , dipst ick pH 5.5 5 - 9 Not Available The [address], [place], [address], 09/28/2019 15:36:13 09/28/19 20 09/28/2019 urina lysis , dipst ick protein NEG mg/dL neg Not Available The Urolog y [place] [address] [place] [address], [place], [address], 09/28/2019 15:36:13 09/28/19 20 09/28/2019 urina lysis , dipst ick urobilinogen 0.2 eu/dL normal Not Available The rology [place] [address] [place] [address], [place], [address], 09/28/2019 15:36:13 09/28/19 20 09/28/2019 urina lysis , dipst ick nitrites NEG neg Not Available The [facility] [address] [place] [address], [place], [address], 09/28/2019 15:36:13 09/28/19 20 09/28/2019 urina lysis , dipst ick leukocytes NEG neg Not Available The Uro log[facility] [place] [address] [place] [address], [place], [address], 09/28/2019 15:36:13 09/28/19 20 09/28/2019 urina lysis , dipst ick date resulted 0 Not Available The [facility] [place] [address] [place] [address], [place], [address], 09/28/2019 15:36:13 09/28/19 20 09/28/2019 urina lysis , dipst ick resulted by ydt Not Available [facility] [place] [address] [place] [address], [place], [address], 09/28/2019 15:36:13 09/28/19 20 09/24/2019 XR, lumba r spine No observ ation record ed. [email or web address] Not Available 2019 16:19:37 Result Notes None recorded. Procedures Surgical History Date Name Laterality Status Provider Name and Address Organization Details Recorded Time Patient Denies Prior Surgeries completed bret [facility] 09/28/2019 15:09:57 Imaging Results None recorded. Procedure Notes None recorded. Medical Equipment None Reported. Allergies No known drug allergies Medications Name Sig Start Date Stop Date Status Note LastModified by Organization Details LastModified Time Claritin 10 mg tablet Take 1 tablet every day by oral route. active Not Available Not Available No t Available valacyclovir 500 mg tablet 09/27 completed Not Available Not Available Not Available tramadol 50 mg tablet 09/27 completed Not Available Not Available Not Available lisinopril 5 mg tablet active Not Available Not Available No t Available methylprednis olone 4 mg tablets in a dose pack 09/27 completed Not Available Not Available Not Available naproxen 500 mg tablet 09/27 completed Not Available Not Available Not Available cyclobenzapri ne 5 mg tablet 09/27 completed Not Available Not Available Not Available Fluarix Quad (PF) 60 mcg (15 mcg x 4)/0.5 mL IM syringe 09/27 completed Not Available Not Available Not Available Vitals Date Recorded Body height Body mass index (BMI) Body weight Heart rate Body temperature Systolic And Diastolic Provider Name and Address Organization Details Last Updated DateTime 0 162.56 cm 36.9 kg/m2 25378.3 6 g 96 /min 97.6 [degF] 144/93 mm[Hg] bret [facility] 0 15:39:11 Social History Question Answer Notes LastModified by Organizat ion Details LastModified Time Tobacco Smoking Status Never Smoker bret lopez [facility] 09/28/2019 15:09:26 Do You Have An Advance Directive? No [email or web address] Information not available 09/28/2019 What Is Your Level Of Caffeine Consumption? Moderate 1 Cup Per Day [email or web address] Information not available 09/28/2019 Sex: Unknown Functional Status Question Answer Note LastModified by Organization D etails LastModified Time What is your level of alcohol consumption? None [email or web address] Information not available 09/28/2019 Mental Status None recorded. Family History Relationship Description Onset Age of this Age Resolved Age Notes LastModified by Organization Details LastModified Time Father Essential hypertension [email or web address] Not available 15:09:15 Medical History Condition Response High Blood Pressure/Hypertension Y Gynecological HistoryNo gynecological history recorded. Obstetrics History GPAL:G 0 P 0 0 0 0 Past Encounters Encounter ID Performer Location Encounter Start Date Encounter Closed Date Diagnosis/Indication Diagnosis SNOMED-CT Code Diagnosis ICD10 Code Diagnosis Note [id number] Benny Brown MD Main [address] [place] [address] 09/28/2019 14:55:16 10/02/2019 15:25:37 Kidney stone 30198474 N20.0 Low back pain 270692597 M54.5 Health Concerns Section Related Observation LastModified by Organization Detai ls LastModified Time None Recorded Concern Status LastModified by Organization Details LastModified Time None Recorded Advance Directives Directive N: Payers Insurance Date Sequence Insurance Name Policy Number Policy Cuelol Covered Member ID Cuello Member ID Guarantor Name 10/02/[address] [facility] [employer] 112 Prateek Hess [id number] Fara Hess Notes Date Note Type Note Provider Name and Address Organization Details Recorded Time 09/28/2019 text/html She ws having lo w back pain and had lumbar spine plain films. These show a 8 x 3 mm calcification in the right kidney. No flank pain; no hematuria. No past history of stones. PMH: otherwise negative Benny Brown MD [address] [place] [address], [phone], [facility] 09/30/2019 18:16:59 OBGyn Episode No OBEpisode recorded.
--- OUTSIDE RECORDS SUMMARY | 2024-12-18 11:28 | XMS_ITS | Clinical Summary ---
Author Organization [facility] Address [address] [place] [address] Care Team Providers Care Errand Runner Name Role Phone Gio Benavides PATIENT ACCESS REPRESENTATIVE Primary Care Provider [phone] Allergies No known active allergies Medications chlorzoxazone 500 MG Tab Take 1 tablet (500 mg total) by mouth 3 (three) times daily as needed (Back pain/muscle spasm). 30 tablet 08/08/2021 Active gabapentin 300 MG capsule Take 1 capsule (300 mg total) by mouth 3 (three) times daily. 90 capsule 08/08/2021 Active diclofenac EC 75 MG tablet Take 1 tablet (75 mg total) by mouth 2 (two) times daily as needed (Pain. Please take with meals). 30 tablet 08/08/2021 Active lisinopril 5 MG tablet Take 1 tablet (5 mg total) by mouth daily. 30 tablet 08/08/2021 Active Social History Tobacco Use Types Packs/Day Years Used Date Smoking Tobacco: Never Smokeless Tobacco: Never Alcohol Use Standard Drinks/Week Comments Not Currently 0 (1 standard drink = 0.6 oz pur e alcohol) Comments No Sex and Gender Information Value Date Recorded Sex Assigned at Not on file Legal Sex Female 7:33 PM CDT Gender Identity Not on file Sexual Orientation Not on file Last Filed Vital Signs Vital Sign Reading Time Taken Comments Blood Pressure 123/79 08/08/2021 9:00 PM DETASSELING CREW SUPERVISOR Pulse 82 08/08/2021 9:00 PM DETASSELING CREW SUPERVISOR Temperature 36.7 C (98.1 F) 08/08/2021 6:13 PM DETASSELING CREW SUPERVISOR Respiratory Rate 20 08/08/2021 9:00 PM DETASSELING CREW SUPERVISOR Oxygen Saturation 96% 08/08/2021 9:00 PM DETASSELING CREW SUPERVISOR Inhaled Oxygen Concentration - - Weight 98.9 kg (218 lb 0.6 oz) 08/08/2021 6:13 P M DETASSELING CREW SUPERVISOR Height 162.6 cm (5' 4) 08/08/2021 6:13 PM DETASSELING CREW SUPERVISOR Body Mass Index 37.43 08/08/2021 6:13 PM DETASSELING CREW SUPERVISOR Plan of Treatment Health Maintenance Due Date Last Done Comments Cervical Cancer Screening Pa p Smear (Age 30 to 64) Every 3 Years 1974 Colorectal Cancer Screening Colonoscopy (10 Years) 1974 Annual Physical 1977 Hepatitis C 1992 DTaP, Tdap and Td Vaccines ( 1 - Tdap) 1993 Hepatitis B Vaccines (1 of 3 - 19+ 3-dose series) 1993 Cervical Cancer Screening Pa p with HPV Testing (Age 30 to 64) Every 5 Years 2004 Cervical Cancer Screening with HPV 2004 Mammogram Screening 2014 COVID-19 Vaccine ( - 2023-2 5 season) 2024 Pneumococcal Vaccine: 50+ Ye ars (1 of 1 - PCV) 2024 Zoster Vaccines (1 of 2) 2024 Meningococcal B Vaccine Aged Out No l onger eligible based on patient's age to complete this topic Meningococcal Vaccine Aged Out No ashwini christiano eligible based on patient's age to complete this topic RSV Immunizations Under 20 Months Aged Out No longer eligible based on patient's age to complete this topic Insurance [facility] Care Teams Errand Runner Relationship Specialty Start Date End Date Gio Benavides, [address] [place] [address] PCP - General Nurse Practitioner Family 08/08/21
[2024-12-18 11:58] LABS: Hematocrit 42.2 % (37.0-47.0); Hemoglobin 14.2 g/dL (12.0-15.0); Immature Granulocyte Percent A 0.2 % (0-0.5); Lymphocytes Absolute Auto 2.02 K/mm3 (0.9-3.2); Mean Corpuscular HGB Conc 33.6 g/dl (32-36); Mean Corpuscular Hemoglobin 30.0 pg (26-34); Mean Corpuscular Volume 89.2 fl (80-100); Nucleated Red Blood Cells Absolute Auto 0.000 K/mm3 (0.0-0.012); Nucleated Red Blood Cells Perc 0.0 % (0.0-0.2); Platelet Count Result 285 k/mm3 (150-375); Red Blood Count 4.73 M/mm3 (4.2-5.4); White Blood Count 5.6 K/mm3 (4.5-10.0)
[2024-12-18 12:12] LABS: INR 1.0; Prothrombin Time 13.4 Seconds (11.1-14.7)
[2024-12-18 12:13] LABS: Partial Thromboplastin Time 30.2 Seconds (22.3-36.8)
--- OUTSIDE RECORDS SUMMARY | 2024-12-18 12:25 | XMS_ITS | Encounter Summary ---
Author Organization [facility] Address [address] [place] [address] Care Team Providers Care Scrub Technician Name Role Phone Rigo Harrison MD Unavailable [phone] Maryellen Villanueva NP Primary Care Provider [phone] Reason for Visit * Reason Onset Date Comments Chest Pain 12/18/2024 Encounter Details Date Type Department Care Team (Late st Contact Info) Description 12/18/2024 Nurse Triage [facility] Primary Care at [address] [address] Maryellen Villanueva NP [address] [place] [address] [address] [place] [address] Social History Tobacco Use Types [...] on file Legal Sex Female 4:47 PM PROCESSING CLERK Gender Identity Not on file Sexual Orientation Not on file documented as of this encounter Miscellaneous Notes * Telephone Encounter - Carole Louis RN - 12/18/2024 9:45 AM CDT Reason for Conversation No chief complaint on file. Background Patient calling into claim inspector stating that she has been experiencing chest [...] right. Please call patient's work line at [phone]. Does message need to be routed? Yes-Action Needed documented in this encounter Plan of Treatment Not on file documented as of this encounter Visit Diagnoses Not on filedocumented in this encounter Care Teams Scrub Technician Relationship Specialty Start Date End Date Maryellen Villanueva NP PCP - General Family Medicine 04/05/22 Rigo Harrison MD Consulting Physician Neurosurgery 08/21/21 documented as of this encounter
--- OUTSIDE RECORDS SUMMARY | 2024-12-18 12:25 | XMS_ITS | Encounter Summary ---
Author Organization [facility] Address [address] [place] [address] Care Team Providers Care Interlocking Tower Operator Name Role Phone Rigo Harrison MD Unavailable [phone] Maryellen Villanueva NP Primary Care Provider [phone] Encounter Details Date Type Department Care Team (Late st Contact Info) Description 11/27/2024 Results Follow-Up [facility] Primary Care at [address] [address] Micaela Stahl NP [address] [place] [address] [address] [place] [address] Albumin Creatinine Ratio, Urine, Hemoglobin [...] on file Legal Sex Female 4:47 PM PATENT ENGINEER Gender Identity Not on file Sexual Orientation Not on file documented as of this encounter Plan of Treatment Not on file documented as of this encounter Visit Diagnoses Not on filedocumented in this encounter Care Teams Interlocking Tower Operator Relationship Specialty Start Date End Date Maryellen Villanueva NP PCP - General Family Medicine 04/05/22 Rigo Harrison MD Consulting Physician Neurosurgery 08/21/21 documented as of this encounter
--- OUTSIDE RECORDS SUMMARY | 2024-12-18 12:25 | XMS_ITS | Clinical Summary ---
Author Organization [address] Address [address] [place] [address] Care Team Providers Care Welder Fitter Name Role Phone Rigo Harrison MD Unavailable [phone] Maryellen Villanueva NP Primary Care Provider [phone] Allergies No known active allergies Medications cetirizine [...] (07/28/2022): Added automatically from request for surgery [id number] Type 2 diabetes mellitus wit hout complication, [...] today. Assessment & Plan (07/14/2022 2:30 PM MIDDLEWARE DEVELOPER): A1c has improved to 6.4%, previous 7.1% Patient has made lifestyle changes and has lost about 22 lbs. Will decrease the Metformin to 500 mg daily. Assessment & Plan (04/13/2022 9:54 AM MIDDLEWARE DEVELOPER): A1c 7.1, education provided in regards to [...] weight. Assessment & Plan (07/14/2022 2:31 PM MIDDLEWARE DEVELOPER): Has lost 22 lbs since our last visit, making lifestyle changes and cutting out sugar in the diet. Whole family on board. Has also started exercising. Keep up the great work Assessment & Plan (04/13/2022 9:52 AM MIDDLEWARE DEVELOPER): Healthy, low carbohydrate lifestyle and exercise for [...] labs Assessment & Plan (07/14/2022 2:30 PM MIDDLEWARE DEVELOPER): BP stable in office, continues Lisinopril 5 mg daily. Assessment & Plan (04/13/2022 9:52 AM MIDDLEWARE DEVELOPER): BP stable in office, diastolic borderline but will continue with Lisinopril 5 mg daily for now. Assessment & Plan (04/10/2022 10:13 AM CDT): BP stable in office, diastolic borderline but will continue with Lisinopril 5 mg daily for now. Labs ordered. Assessment & Plan (07/20/2021 11:06 PM MIDDLEWARE DEVELOPER): Continue with meds and plan of treatment. Continue to loose weight. Watch salt intake and avoid excessive salty food. Assessment & Plan (07/10/2021 3:21 PM MIDDLEWARE DEVELOPER): Continue with Lisinopril 5mg one daily. Continue with the MADERA diet for weight loss, note has lost 25 pounds. Push fluids. Avoid salt in diet, and salty fluids. 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 Harrison Starting PT again today Continue with current plan. Assessment & Plan (07/20/2021 11:15 PM MIDDLEWARE DEVELOPER): Will increase Flexeril to 5mg every 8 hours during the day and 10mg at night. Ice alternate heat every 4 hours for 10-15 minutes. Limited activity Set up for MRI without contrast Open or closed.unit Also talked with Neurosurgeon about seeing patient. Will call back. Assessment & Plan (07/10/2021 3:25 PM MIDDLEWARE DEVELOPER): Lumbar spine xray today. No heavy lifting. [...] outbreak Assessment & Plan (07/10/2021 3:32 PM MIDDLEWARE DEVELOPER): Valtrex 500mg one tab bid for 5 days. Make sure diet is balanced. Vit C 500mg bid Vit D3 1000IU daily. Avoid stress. Encounters Date Type Department Care Team Description 12/18/2024 Nurse Triage [facility] Primary Care at [address] [phone] Maryellen Villanueva NP 11/27/2024 Results Follow-Up [facility] Primary Care at [address] [phone] Micaela Stahl NP Albumin Creatinine Ratio, Urine, Hemoglobin A1c 11/23/2024 8:15 AM CDT Lab [facility] Outpatient Lab at [address] [phone] 11/23/2024 8:09 AM CDT - 11/23/2024 11:59 PM CDT Hospital Encounter [address] [id number] Type 2 diabetes mellitus without complication, without [...] on file Legal Sex Female 4:47 PM MIDDLEWARE DEVELOPER Gender Identity Not on file Sexual Orientation [...] HEPATITIS C ANTIBODY Routine 08/08/2024 4:20 PM MIDDLEWARE DEVELOPER Encounter for hepatitis C screening test for low risk patient EGFR Routine 08/08/2024 4:20 PM MIDDLEWARE DEVELOPER Hypertension associated with diabetes (HCC) Type 2 diabetes mellitus without complication, without long-term current use of insulin (HCC) LIPID PANEL Routine 08/08/2024 4:20 PM MIDDLEWARE DEVELOPER Hypertension associated with diabetes (HCC) Type 2 diabetes mellitus without complication, without long-term current use of insulin (HCC) DIABETES EYE EXAM Routine 07/17/2024 4:04 PM MIDDLEWARE DEVELOPER PAP AND HPV, REFLEX TO HPV GENOTYPES [...] CDT 11/23/2024 3:23 PM CDT Maryellen Villanueva CONSTRUCTION TRADES CONTRACTOR LAB URINE ORDERABLES Final Resul t [facility] [address] [address] Department [place] [address] * (ABNORMAL) Hemoglobin A1c (11/23/2024 8:09 AM CDT) Hgb A1C 6.0(H) 4.0 - 5.6 % Estimated Average Glucose 126 mg/dL [facility] Comment: The ADA recommends reporting an estimated Average Glucose (eAG) with all Hemoglobin A1c results using the equation derived from a study of 507 normal and diabetic adults. Minority populations were underrepresented and children were not included. (Diabetes Care 31:3526-4812, 2008). The eAG is not equivalent to a fasting glucose. Blood 11/23/2024 8:09 AM CDT 11/23/2024 3:23 PM CDT us Maryellen Villanueva NP LAB BLOOD ORDERABLES Final Resul t Performing Organization Address City/[facility] Co de Phone Number [place] [address] [address] [place], [place] [id number] * eGFR (08/08/2024 4:20 PM MIDDLEWARE DEVELOPER) eGFR 80 >=60 mL/min/1. 73 m2 Comment: [...] last reviewed 2021. Blood 08/08/2024 4:20 PM MIDDLEWARE DEVELOPER 08/08/2024 9:36 PM MIDDLEWARE DEVELOPER us Maryellen Villanueva NP LAB BLOOD ORDERABLES Final Resul t Performing Organization Address City/[facility] Co de Phone Number [place] [address] [address] [place] [address] * Hepatitis C antibody Blood (08/08/2024 4:20 PM MIDDLEWARE DEVELOPER) Hep C Ab Nonreactive Nonreactive Comment: Interpretive [...] revised on 2019. Blood 08/08/2024 4:20 PM MIDDLEWARE DEVELOPER 08/08/2024 9:03 PM MIDDLEWARE DEVELOPER us Maryellen Villanueva NP LAB MICROBIOLOGY - GENERAL ORDER CHRISTINE Final Result [facility] [place] [address] [address] Department [place] [address] * (ABNORMAL) Lipid panel (08/08/2024 4:20 PM MIDDLEWARE DEVELOPER) Cholesterol 172 30 - 199 mg/dL Comment: [...] 4 [facility] MADRIGAL Blood 08/08/2024 4:20 PM MIDDLEWARE DEVELOPER 08/08/2024 9:03 PM MIDDLEWARE DEVELOPER Maryellen Villanueva NP LAB BLOOD ORDERABLES Final Resul t [place] [address] [address] Department of Laboratories [place], [place] [id number] * HM DIABETES EYE EXAM (07/17/2024 4:04 PM MIDDLEWARE DEVELOPER) SCRIBED DIABETIC DILATED EYE EXAM Normal Balbina Aceves MA HEALTH MAINTENANCE Final Result * Pap and HPV, reflex to HPV Genotypes (10/11/2023 12:15 PM CDT) CLINICAL INFORMATION: [facility] Comment: Routine exam SCREENING LMP [facility] Comment:[id number] Previous Pap [facility] Comment:NONE GIVEN Prev. Bx [facility] Comment:NONE GIVEN SOURCE: [facility] Comment:Cervix, Endocervix Pap, specimen adequacy [facility] Comment: Satisfactory for evaluation. Endocervical/transformation zone component present. HPV interp [facility] Comment: Cytology Results: Negative for intraepithelial lesion or malignancy. COMMENTS [facility] Comment: This Pap test has been evaluated with computer assisted technology. Hospital Receiving Clerk [facility] Comment: BES, CT(ASCP) CT screening location: [place] [address] [place] [address] Comment [facility] Comment: EXPLANATORY NOTE: The Pap is a [...] High Risk E6/E7 Not Detected NOT DETECTED [employer] [facility]Brenda NAVA Comment: Not Detected High Risk HPV types (16,18,31,33,35,39,45,51,52, 56,58,59,66,68) were not detected. Other HPV types which cause anogenital lesions may be present. The significance of the other types of HPV in malignant processes has not been established. Methodology: Real Time PCR Thin prep 10/11/2023 12:1 5 PM CDT 10/12/2023 6:10 AM CDT us Velvet Pierce CONSTRUCTION TRADES CONTRACTOR LAB CYTOLOGY ORDERABLES Final Re sult [facility] [address] [place] [address] Leonides [place]barra[place] [address] [place] [address] * COLONOSCOPY (08/30/2022 7:17 AM CDT) Anatomical Region Laterality Modality Other Narrative Procedure Note Ehsan Cross MD - 08/30/2022 7:[address] [facility] Patient Name: Fara Mcfadden Procedure Date: 08/30/2022 7:17 AM Date of : 1975 Admit Type: Outpatient Age: 47 Gender: Female Attending MD: Ehsan Cross M.D. Room: [facility] ENDOSCOPY ROOM 3 Note Status: [...] by the physician, the nurse and the director consumer affairs in the endoscopy suite. Mental Status Examination: [...] scope was passed under direct vision.The Colonoscope [id number] was introducedthrough the anus and advanced to [...] 7:17 AM Procedure Code(s): --- Professional --- 11410, Colonoscopy, flexible; with removal of tumor(s), polyp(s), or other lesion(s) by snare technique --- Technical --- 82840, Colonoscopy, flexible; with removal of tumor(s), polyp(s), [...] perforation orabscess without bleeding CPT copyright 2020 [employer]. All rights reserved. The codes documented in this report are preliminary and upon indexer reviewmay be revised to meet current compliance requirements. Recognized by the [place] [employer] for promoting quality in endoscopy Ehsan Cross MD ENDOSCOPY PROCEDURES Final Resul t * HM MAMMOGRAPHY (08/08/2019) Mammography Normal Historical Provider HEALTH MAINTENANCE Final Result from Last 3 Months or Most Recently Relevant to Health Maintenance Insurance [facility] [employer] [facility] [employer] [facility] [employer] Advance Directives For more information, please contact: [phone] * Full Code (Latest Code Status on File) Date Activated Date Inactivated Comments 08/30/2022 7:11 AM 08/30/2022 12:57 PM * Full Code Date Activated Date Inactivated Comments 08/30/2022 7:11 AM 08/30/2022 7:11 AM Care Teams Welder Fitter Relationship Specialty Start Date End Date Maryellen Villanueva NP PCP - General Family Medicine 04/05/22 Rigo Harrison MD Consulting Physician Neurosurgery 08/21/21
--- OUTSIDE RECORDS SUMMARY | 2024-12-18 12:25 | XMS_ITS | Referral Summary ---
Author Organization [address] Address [address] [place] [phone] Care Team Providers Care Net Developer Name Role Phone Rigo Harrison MD Unavailable [phone] Maryellen Villanueva NP Primary Care Provider [phone] Encounters Date Type Department Care Team Description 12/18/2024 Nurse Triage [facility] Medical [facility] Primary Care at [address] [id number] Maryellen Villanueva NP 11/27/2024 Results Follow-Up [facility] Primary Care at [address] [id number] Micaela Stahl NP Albumin Creatinine Ratio, Urine, Hemoglobin A1c 11/23/2024 8:09 AM CDT - 11/23/2024 11:59 [place] [address] Type 2 diabetes mellitus without complication, without long-term current use of insulin (HCC) Discharge Disposition: Discharge to home or self care 11/23/2024 8:15 AM CDT Lab [facility] Medical [facility] Outpatient Lab at [address] [phone] from Last 3 Months Allergies [...] (07/28/2022): Added automatically from request for surgery [id number] Type 2 diabetes mellitus wit hout complication, [...] today. Assessment & Plan (07/14/2022 2:30 PM HYDROELECTRIC SYSTEMS TECHNICIAN): A1c has improved to 6.4%, previous 7.1% Patient has made lifestyle changes and has lost about 22 lbs. Will decrease the Metformin to 500 mg daily. Assessment & Plan (04/13/2022 9:54 AM HYDROELECTRIC SYSTEMS TECHNICIAN): A1c 7.1, education provided in regards to [...] weight. Assessment & Plan (07/14/2022 2:31 PM HYDROELECTRIC SYSTEMS TECHNICIAN): Has lost 22 lbs since our last visit, making lifestyle changes and cutting out sugar in the diet. Whole family on board. Has also started exercising. Keep up the great work Assessment & Plan (04/13/2022 9:52 AM HYDROELECTRIC SYSTEMS TECHNICIAN): Healthy, low carbohydrate lifestyle and exercise for [...] labs Assessment & Plan (07/14/2022 2:30 PM HYDROELECTRIC SYSTEMS TECHNICIAN): BP stable in office, continues Lisinopril 5 mg daily. Assessment & Plan (04/13/2022 9:52 AM HYDROELECTRIC SYSTEMS TECHNICIAN): BP stable in office, diastolic borderline but will continue with Lisinopril 5 mg daily for now. Assessment & Plan (04/10/2022 10:13 AM CDT): BP stable in office, diastolic borderline but will continue with Lisinopril 5 mg daily for now. Labs ordered. Assessment & Plan (07/20/2021 11:06 PM HYDROELECTRIC SYSTEMS TECHNICIAN): Continue with meds and plan of treatment. Continue to loose weight. Watch salt intake and avoid excessive salty food. Assessment & Plan (07/10/2021 3:21 PM HYDROELECTRIC SYSTEMS TECHNICIAN): Continue with Lisinopril 5mg one daily. Continue with the [place] diet for weight loss, note has lost 25 pounds. Push fluids. Avoid salt in diet, and salty fluids. 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 Harrison Starting PT again today Continue with current plan. Assessment & Plan (07/20/2021 11:15 PM HYDROELECTRIC SYSTEMS TECHNICIAN): Will increase Flexeril to 5mg every 8 hours during the day and 10mg at night. Ice alternate heat every 4 hours for 10-15 minutes. Limited activity Set up for MRI without contrast Open or closed.unit Also talked with Neurosurgeon about seeing patient. Will call back. Assessment & Plan (07/10/2021 3:25 PM HYDROELECTRIC SYSTEMS TECHNICIAN): Lumbar spine xray today. No heavy lifting. [...] outbreak Assessment & Plan (07/10/2021 3:32 PM HYDROELECTRIC SYSTEMS TECHNICIAN): Valtrex 500mg one tab bid for 5 [...] on file Legal Sex Female 4:47 PM HYDROELECTRIC SYSTEMS TECHNICIAN Gender Identity Not on file Sexual Orientation [...] HEPATITIS C ANTIBODY Routine 08/08/2024 4:20 PM HYDROELECTRIC SYSTEMS TECHNICIAN Encounter for hepatitis C screening test for low risk patient EGFR Routine 08/08/2024 4:20 PM HYDROELECTRIC SYSTEMS TECHNICIAN Hypertension associated with diabetes (HCC) Type 2 diabetes mellitus without complication, without long-term current use of insulin (HCC) LIPID PANEL Routine 08/08/2024 4:20 PM HYDROELECTRIC SYSTEMS TECHNICIAN Hypertension associated with diabetes (HCC) Type 2 diabetes mellitus without complication, without long-term current use of insulin (HCC) HM DIABETES EYE EXAM Routine 07/17/2024 4:04 PM HYDROELECTRIC SYSTEMS TECHNICIAN PAP AND HPV, REFLEX TO HPV GENOTYPES Routine 10/11/2023 12:15 PM CDT Encounter for annual routine gynecological examination COLONOSCOPY 08/30/2022 7:17 AM CDT HM MAMMOGRAPHY Routine 08/08/2019 from Last 3 Months or Most Recently Relevant to Health Maintenance Results * Albumin Creatinine Ratio, Urine (11/23/2024 8:09 AM CDT) [facility] [address] Albumin Ur <12.0 mg/L Comment: Interpretive Data No reference range established. Current interpretive data was last revised 2018. Creatinine Ur 202.2 mg/dL [facility] Comment: Interpretive Data No reference range established. Current interpretive data was last revised 2018. Albumin Creatinine Ratio, Ur <6 1 - 29 mg/g [facility] Urine 11/23/2024 8:09 AM CDT 11/23/2024 3:23 PM CDT us Maryellen Villanueva NP LAB URINE ORDERABLES Final Resul t Performing Organization Address [facility] de Phone Number GL[place] [address] [address] [place] [address] * (ABNORMAL) Hemoglobin A1c (11/23/2024 8:09 AM CDT) [facility] [address] Hgb A1C 6.0(H) 4.0 - 5.6 % Estimated Average Glucose 126 mg/dL [facility] Comment: The ADA recommends reporting an estimated Average Glucose (eAG) with all Hemoglobin A1c results using the equation derived from a study of 507 normal and diabetic adults. Minority populations were underrepresented and children were not included. (Diabetes Care 31:3042-9089, 2008). The eAG is not equivalent to a fasting glucose. Blood 11/23/2024 8:09 AM CDT 11/23/2024 3:23 PM CDT us Maryellen Villanueva NP LAB BLOOD ORDERABLES Final Resul t Performing Organization Address City/[facility] Co de Phone Number GL[place] [address] [address] [facility] [employer] [place], [place] [id number] * eGFR (08/08/2024 4:20 PM HYDROELECTRIC SYSTEMS TECHNICIAN) eGFR 80 >=60 mL/min/1. 73 m2 Comment: [...] last reviewed 2021. Blood 08/08/2024 4:20 PM HYDROELECTRIC SYSTEMS TECHNICIAN 08/08/2024 9:36 PM HYDROELECTRIC SYSTEMS TECHNICIAN us Maryellen Villanueva NP LAB BLOOD ORDERABLES Final Resul t [place] [address] [address] [facility] [place] [address] * Hepatitis C antibody Blood (08/08/2024 4:20 PM HYDROELECTRIC SYSTEMS TECHNICIAN) Hep C Ab Nonreactive Nonreactive Comment: Interpretive [...] revised on 2019. Blood 08/08/2024 4:20 PM HYDROELECTRIC SYSTEMS TECHNICIAN 08/08/2024 9:03 PM HYDROELECTRIC SYSTEMS TECHNICIAN us Maryellen Villanueva NP LAB MICROBIOLOGY - GENERAL ORDER CHRISTINE Final Result [place] [address] [address] [facility] [place] [address] * (ABNORMAL) Lipid panel (08/08/2024 4:20 PM HYDROELECTRIC SYSTEMS TECHNICIAN) Cholesterol 172 30 - 199 mg/dL Comment: [...] 4 GLENIS MADRIGAL Blood 08/08/2024 4:20 PM HYDROELECTRIC SYSTEMS TECHNICIAN 08/08/2024 9:03 PM HYDROELECTRIC SYSTEMS TECHNICIAN us Maryellen Villanueva NP LAB BLOOD ORDERABLES Final Resul t [place] MADRIGAL [address] [address] [facility] [place] [address] * DIABETES EYE EXAM (07/17/2024 4:04 PM HYDROELECTRIC SYSTEMS TECHNICIAN) SCRIBED HM DIABETIC DILATED EYE EXAM Normal Balbina Aceves MA HEALTH MAINTENANCE Final Result * Pap and HPV, reflex to HPV Genotypes (10/11/2023 12:15 PM CDT) CLINICAL INFORMATION: [facility] Comment: Routine exam SCREENING LMP [facility] Comment:[id number] Previous Pap [facility] Comment:NONE GIVEN Prev. Bx [facility] Comment:NONE GIVEN SOURCE: [facility] Comment:Cervix, Endocervix Pap, specimen adequacy [facility] Comment: Satisfactory for evaluation. Endocervical/transformation zone component present. HPV interp [facility] Comment: Cytology Results: Negative for intraepithelial lesion or malignancy. COMMENTS [facility] Comment: This Pap test has been evaluated with computer assisted technology. Flash Drier Operator [facility] Comment: BES, CT(ASCP) CT screening location: [place] [address] [address] Marks [address] Comment [facility] Comment: EXPLANATORY NOTE: The Pap is [...] High Risk E6/E7 Not Detected NOT DETECTED [employer] /Brenda Ramirez [facility] Comment: Not Detected High Risk HPV types (16,18,31,33,35,39,45,51,52, 56,58,59,66,68) were not detected. Other HPV types which cause anogenital lesions may be present. The significance of the other types of HPV in malignant processes has not been established. Methodology: Real Time PCR Thin prep 10/11/2023 12:1 5 PM CDT 10/12/2023 6:10 AM CDT Velvet Pierce NP LAB CYTOLOGY ORDERABLES Final Re sult [facility] [address] [address] T[place]AS[place]man [phone] [address] [employer]/[place] [address] [facility] [address] * COLONOSCOPY (08/30/2022 7:17 AM CDT) Anatomical Region Laterality Modality Other Narrative Procedure Note Ehsan Cross MD - 08/30/2022 7:17 AM CDT [facility] Patient Name: Fara Mcfadden Procedure Date: 08/30/2022 7:17 AM Date of : 1975 Admit Type: Outpatient Age: 47 Gender: Female Attending MD: Ehsan Cross M.D. Room: [facility] ENDOSCOPY ROOM 3 Note Status: Finalized Patient [...] by the physician, the nurse and the focusing machine operator in the endoscopy suite. Mental Status Examination: [...] scope was passed under direct vision.The Colonoscope [id number] was introducedthrough the anus and advanced to [...] 7:17 AM Procedure Code(s): --- Professional --- 66147, Colonoscopy, flexible; with removal of tumor(s), polyp(s), or other lesion(s) by snare technique --- Technical --- 69153, Colonoscopy, flexible; with removal of tumor(s), polyp(s), [...] perforation orabscess without bleeding CPT copyright 2020 [employer]. All rights reserved. The codes documented in this report are preliminary and upon training assistant reviewmay be revised to meet current compliance requirements. Recognized by the [employer] for promoting quality in endoscopy Ehsan Cross MD ENDOSCOPY PROCEDURES Final Resul t * HM MAMMOGRAPHY (08/08/2019) Mammography Normal Historical Provider HEALTH MAINTENANCE Final Result from Last 3 Months or Most Recently Relevant to Health Maintenance Insurance [facility] [employer] [facility] [employer] [facility] [employer] Advance Directives For more information, please contact: [phone] * Full Code (Latest Code Status on File) Date Activated Date Inactivated Comments 08/30/2022 7:11 AM 08/30/2022 12:57 PM * Full Code Date Activated Date Inactivated Comments 08/30/2022 7:11 AM 08/30/2022 7:11 AM Care Teams Net Developer Relationship Specialty Start Date End Date Maryellen Villanueva NP PCP - General Family Medicine 04/05/22 Rigo Harrison MD Consulting Physician Neurosurgery 08/21/21
[2024-12-18 12:28] LABS: Alanine Aminotransferase 51 U/L (6-35); Albumin Level 4.5 g/dL (3.5-5.1); Alkaline Phosphatase 68 U/L (38-126); Anion Gap 8 mmol/L (4-12); Aspartate Amino Transferase 43 U/L (14-36); Bilirubin,Total 0.5 mg/dL (0.2-1.3); Blood Urea Nitrogen 14 mg/dL (7-17); Calcium 9.3 mg/dL (8.4-10.2); Carbon Dioxide 24 mmol/L (22-30); Chloride 107 mmol/L (98-107); Estimated Glomerular Filt Rate > 60; Glucose 99 mg/dL (65-110); Lipase 177 U/L (23-300); Potassium 4.1 mmol/L (3.4-5.0); Sodium 139 mmol/L (137-145); Total Protein 7.9 g/dL (6.3-8.2)
[2024-12-18] MEDS: ASPIRIN 81 MG CHEWABLE TABLET 324 MG PO (12:28)
[2024-12-18 12:40] LABS: Troponin I < 0.012 ng/mL (0.000-0.034)
--- NOTE | 2024-12-18 13:09 | ED_ITS ---
HPI - General Adult General Chief complaint: Chest Pain Stated complaint: chest tightness Time Seen by Provider: 12/18/24 12:01 History of Present Illness HPI narrative: Patient is a 49-year-old female who presents ER with chest pain. Ongoing since August when she starts her Ozempic but has had increased discomfort for the last 4 days. It is pressure in the left chest that goes to her shoulder. Worse when she eats. Better when she goes to sleep. No exertional component. No fevers or chills or sweats. Related Data Home Medications ?Medication ?Instructions ?Recorded ?Confirmed ?Last Taken ?Type fexofenadine-pseudoephedrine ER 1 tablet PO QAM 11/13/20 11/13/20 Unknown History 180 mg-240 mg tablet,ext.release 24 hr (Shelia-D 24 Hour) lisinopril 5 mg tablet 5 mg PO HS 11/13/20 12/18/24 12/17/24 History rosuvastatin 20 mg tablet mg 12/18/24 12/17/24 History semaglutide 0.25 mg or 0.5 mg (2 0.5 mg subcut WEEKLY 12/18/24 12/18/24 12/15/24 History mg/3 mL) subcutaneous pen injector (Ozempic) Allergies Allergy/AdvReac Type Severity Reaction Status Date / Time No Known Allergies Allergy Verified 11/12/20 22:54 Review of Systems 2 Review of Systems: All systems reviewed & are unremarkable except as noted in HPI and below Constitutional: Constitutional: Reports no additional constitutional complaints ENT: Reports system reviewed and no additional complaints, except as documented Cardiovascular: Cardiovascular: Reports no additional cardiovascular complaints Respiratory: Respiratory: Reports no additional respiratory complaints Gastrointestinal: Gastrointestinal: Reports no additional gastrointestinal complaints PMFSH Past Medical History Medical History Hydronephrosis Obesity Right ureteral stone Family History Family History Grandparent Diabetes mellitus Father Hypertension Social History Social History Smoking status: Never smoker Alcohol intake: never Substance use: never Spiritual care concerns: No Exam 2 Narrative: GENERAL: Well-appearing, well-nourished, and in no acute distress. HEAD: Normocephalic, atraumatic. ENT: Mucous membranes moist. CHEST: Clear to auscultation. No respiratory distress. HEART: Regular rate and rhythm. Normal peripheral pulses. ABDOMEN: Soft, nontender, nondistended. EXTREMITIES: Normal range of motion. No edema. SKIN: Warm, dry, no rash. NEURO: Alert and oriented x3. PSYCH: Normal mood and affect. Course Course Emergency Course: Troponin negative x2. Feels improved with GI cocktail. Appropriate for discharge home and follow-up with PCP. Ultrasound without gallstones. Vital Signs Vital signs: Vital Signs Temperature 97.8 F 12/18/24 11:22 Pulse Rate 64 12/18/24 11:22 Respiratory Rate 16 12/18/24 11:22 Blood Pressure 168/79 H 12/18/24 11:22 Pulse Oximetry 99 12/18/24 11:22 Oxygen Delivery Room Air 12/18/24 11:22 Temperature 97.8 F 12/18/24 11:22 Pulse Rate 64 12/18/24 11:22 Respiratory Rate 16 12/18/24 11:22 Blood Pressure 168/79 H 12/18/24 11:22 Pulse Oximetry 99 12/18/24 11:22 Oxygen Delivery Room Air 12/18/24 11:22 Medical Decision Making Vital Signs Vital Signs: Vital Signs Temperature 97.8 F 12/18/24 11:22 Pulse Rate 64 12/18/24 11:22 Respiratory Rate 16 12/18/24 11:22 Blood Pressure 168/79 H 12/18/24 11:22 Pulse Oximetry 99 12/18/24 11:22 Oxygen Delivery Room Air 12/18/24 11:22 Temperature 97.8 F 12/18/24 11:22 Pulse Rate 64 12/18/24 11:22 Respiratory Rate 16 12/18/24 11:22 Blood Pressure 168/79 H 12/18/24 11:22 Pulse Oximetry 99 12/18/24 11:22 Oxygen Delivery Room Air 12/18/24 11:22 Lab Data 12/18/24 11:51 12/18/24 11:51 Labs: Lab Results 12/18/24 12/18/24 Range/Units 11:51 14:42 WBC 5.6 (4.5-10.0) K/mm3 RBC 4.73 (4.2-5.4) M/mm3 Hgb 14.2 (12.0-15.0) g/dL Hct 42.2 (37.0-47.0) % MCV 89.2 (80-100) fl MCH 30.0 (26-34) pg MCHC 33.6 (32-36) g/dl RDW 12.8 (11.5-14.5) % Plt Count 285 (150-375) k/mm3 MPV 9.8 (7.4-10.4) fl Immature Gran % (Auto) 0.2 (0-0.5) % Neut % (Auto) 55.9 (45.5-73.1) % Lymph % (Auto) 36.4 (18.3-44.2) % Garza % (Auto) 5.4 (2.6-8.5) % Eos % (Auto) 1.4 (0-4.4) % Baso % (Auto) 0.7 (0.2-1.2) % Lymph # (Auto) 2.02 (0.9-3.2) K/mm3 Garza # (Auto) 0.3 (0.1-0.6) K/mm3 Eos # (Auto) 0.1 (0-0.3) K/mm3 Baso # (Auto) 0.0 (0.0-0.1) K/mm3 Abs Immat Gran (auto) 0.01 (0.00-0.031) K/mm3 Absolute Neuts (auto) 3.1 (1.3-6.7) K/mm3 Absolute Nucleated RBC 0.000 (0.0-0.012) K/mm3 Nucleated RBC % 0.0 (0.0-0.2) % PT 13.4 (11.1-14.7) Seconds INR 1.0 APTT 30.2 (22.3-36.8) Seconds Sodium 139 (137-145) mmol/L Potassium 4.1 (3.4-5.0) mmol/L Chloride 107 (98-107) mmol/L Carbon Dioxide 24 (22-30) mmol/L Anion Gap 8 (4-12) mmol/L BUN 14 D (7-17) mg/dL Creatinine 0.88 (0.7-1.0) mg/dL Estim Creat Clear Calc Not Reportable Estimated GFR > 60 (59 - ) Glucose 99 (65-110) mg/dL Calcium 9.3 (8.4-10.2) mg/dL Total Bilirubin 0.5 (0.2-1.3) mg/dL AST 43 H (14-36) U/L ALT 51 H (6-35) U/L Alkaline Phosphatase 68 (38-126) U/L Troponin I < 0.012 < 0.012 (0.000-0.034) ng/mL Total Protein 7.9 (6.3-8.2) g/dL Albumin 4.5 (3.5-5.1) g/dL Lipase 177 (23-300) U/L Imaging Data Radiologist's impression: ITS Impressions Chest X-Ray 12/18/24 12:36 IMPRESSION: No acute cardiopulmonary pathology. Upper Quadrant Ultrasound 12/18/24 14:00 IMPRESSION: 1: Normal limited abdominal ultrasound. Discharge Plan Discharge Clinical Impression: Esophagitis Patient Disposition: Home Condition: Stable Instructions: Esophagitis (ED) Additional Instructions: Return to the emergency department if you develop severe abdominal pain, severe nausea and vomiting to the point where you are unable to keep down fluids, if you develop chest pain or difficulty breathing, blood in your stool, dizziness or fainting, or if you develop any other new or concerning symptoms as these could be signs of more serious medical illness. Try to stay well hydrated. Patient Language: Danish Prescriptions: New pantoprazole 40 mg tablet,delayed release (DR/EC) 40 mg PO BID Qty: 28 0RF No Action lisinopril 5 mg tablet 5 mg PO HS Shelia-D 24 Hour 180-240 mg Tablet Extended Release 24 Hr 1 tablet PO QAM rosuvastatin 20 mg tablet Ozempic 0.25 mg or 0.5 mg (2 mg/3 mL) pen injector 0.5 mg subcut WEEKLY Follow-up/Referrals: Rich,Maryellen eBnítez APRN [Primary Care Provider] - 1 Week
--- NOTE | 2024-12-18 14:37 | ECG_ITS ---
Test Date: 2024-12-18 14:41:40 Measurements Intervals [place] Rate: 72 P: -8 VT: 158 QRS: -10 QRSD: 88 T: 8 QT: 393 QTc: 431 Interpretive Statements SINUS RHYTHM Compared to ECG 12/18/2024 11:16:43 Ventricular premature complex(es) no longer present Poor R-wave progression no longer present Electronically Signed On 12-19-2024 12:33:12 CDT by Cornelio Fields M.D.
[2024-12-18] MEDS: BELLADONNA ALK/PHENOB ELIX 10 ML, MAG HYDROX/ALUMINUM HYD/SIMETH 30 ML, LIDOCAINE 2% VI... PO (14:42)
[2024-12-18 15:18] LABS: Troponin I < 0.012 ng/mL (0.000-0.034)
== END 2024-12-18 15:59 | disposition home or self-care (01) ==
PROVIDERS: Emergency Medicine; Emergency Provider Emergency Medicine; PCP Nurse Practitioner Family
DX: K20.90 Esophagitis, unspecified without bleeding (principal)
CPT/HCPCS: 36415; 71046; 76705; 80053; 83690; 84484; 85025; 85610; 85730; 93005; 99284; A9270